=== PATIENT | male | born 1960 | race Caucasian/White ===

== ENCOUNTER 2023-01-11 20:09 | Inpatient (IN) | payer OTHER, SELFPAY ==
--- NOTE | ~2023-01-11 | XR_ITS ---
EXAMINATION: XR RIBS, LEFT CLINICAL INFORMATION: Rib pain COMPARISON: None available. TECHNIQUE: 3 views of the left ribs and one view of the chest were obtained. FINDINGS: The cardiac and mediastinal contours are stable. The lungs are clear. No pleural effusion or pneumothorax. There are left posterior sixth through ninth old or healing rib fractures. There is question of an acute fracture of the anterior eighth rib. Question 6 x 16 mm left renal stone. XR/XR ribs LT min 3V w CXR1V IMPRESSION: No evidence for acute disease in the chest. Old or healing left posterior sixth through ninth rib fractures. Question more recent or acute left anterior eighth rib fracture and left renal stone.
[2023-01-11] MEDS: traZODone HCL 50 MG TABLET PO (21:16)
[2023-01-11] MEDS: hydrOXYzine HCL 25 MG TABLET PO (21:17)
[2023-01-11 21:24] VITALS: BMI 26.2
[2023-01-11] MEDS: LORazepam 0.5 MG TABLET PO (21:35)
[2023-01-11 21:42] VITALS: BP 158/78; PULSE 68; RESP 18; TEMP 37; O2SAT 96
--- NOTE | 2023-01-12 | PC.ADMIT ---
Admitted a 62 yrs. old male patient per stretcher accompanied by ambulance staff w/ presenting problem of anxiety. Pt. has hx of anxiety and Bipolar D/O. Pt. is alert and oriented x4, very anxious and nervous but denies SI/HI/AVH. Pt. reports that he is not taken his medications. Pt has hx of high cholesterol and pulmonary embolism. Pt. signed the CV. Skin assessment done w. a small bruise to R. AC and small red areas on L arm. Pt. denies pain and SOB, no edema noted. Pt oriented to the unit.staff and room mate. Dr. Nguyen Olivera in w/ orders and hospitalist informed for hospitalist consult. Pt is given PRN Atarax, Trazodone and Ativan 0.5 mg. w/ good effect. Pt. is cooperative w/ the admission prcess w/ some encouragement. Pt signed some of the Release of information. Pt is independent in ambulation and ADLS.
[2023-01-12] MEDS: hydrOXYzine HCL 25 MG TABLET PO ×3 (05:05→17:37)
[2023-01-12] MEDS: Acetaminophen 325 MG TABLET 650 MG PO (08:00)
[2023-01-12 08:20] VITALS: BP 156/88; PULSE 85; RESP 20; TEMP 35.9; O2SAT 96
[2023-01-12 08:52] LABS: Estimated Average Glucose 103 mg/dL; Hemoglobin A1c % 5.2 %
[2023-01-12] MEDS: LORazepam 0.5 MG TABLET PO ×3 (08:57→20:21)
[2023-01-12 09:19] LABS: Alanine Aminotransferase 25 U/L (0-40); Albumin Level 4.3 g/dL (3.5-5.0); Alkaline Phosphatase 90 U/L (39-117); Anion Gap 17 (12-20); Aspartate Amino Transferase 17 U/L (5-37); Bilirubin Total 1.3 mg/dL (0.0-1.0); Blood Urea Nitrogen 19 mg/dL (9-16); Carbon Dioxide 16 mmol/L (22-29); Chloride 111 mmol/L (96-108); Cholesterol 177 mg/dL; Creatinine Clr Calc Pharmacy 56.9; Estimated Glomerular Filt Rate 46; Glucose Fasting 158 mg/dL (60-99); HDL Cholesterol 53 mg/dL; LDL Cholesterol Calculated 104 mg/dl; Potassium 4.1 mmol/L (3.3-5.1); Sodium 140 mmol/L (135-145); Total Protein 6.5 g/dL (6.5-8.0); Triglycerides 101 mg/dL
[2023-01-12 09:34] LABS: Folate 14.7 ng/mL (> or = 4.0); Free T4 (Free Thyroxine) 1.33 ng/dL (0.71-1.85); Thyroid Stimulating Hormone 1.03 uIU/mL (0.32-4.0); Vitamin B12 501 pg/mL (200-900)
[2023-01-12] MEDS: OLANZapine ODT 10 MG TAB.RAPDIS TRANSLINGU ×2 (14:38→18:07)
--- NOTE | 2023-01-12 14:42 | HO.PSYADMNOT ---
HPI Date of Service: 01/12/23 Chief Complaint: F32.9, F31.9 Sources of Information: patient interviewed, chart reviewed and crisis/core team assessment reviewed HPI Subjective Notes: [place] Warning and Conditional Voluntary Narrative: The patient is a 62-year-old male, , with no biological children, living with his is still adult stepdaughter and child, disable with good social support. According to the crisis assessment, the patient carries a diagnosis of bipolar disorder and he was referred to the emergency room due to exacerbation of anxiety. Apparently, he had being noncompliant with medications for several months. On interview, the patient was very anxious and we had to stop the interview a couple of times. He he adamantly denies having a psychiatric disease besides anxiety and he stated that he was not feeling well with restlessness, racing thoughts, dysphoria, depressive symptoms and port attention. He denies active suicidal ideation and he is able to contract for safety. We will try to gather collateral information and contact her and get more information regarding him. Medical Evaluation Reviewed: Yes PMFSH Family History: Patient refused to elaborate Social History: , living with his and adult stepdaughter, good social support. Substance History: Unknown, he denies Trauma History: Denies Diagnostics Vital Signs (24Hr): Vital Signs - 24 hr 01/11/23 21:42 01/12/23 08:20 Temperature 98.6 F 96.6 F L Pulse Rate 68 85 Respiratory Rate 18 20 Blood Pressure 158/78 H 156/88 H Pulse Oximetry 96 96 Oxygen Delivery Method Room Air Room Air BMI result Body Mass Index 26.2 Labs 01/12/23 07:58 Labs: Laboratory Results - last 48 hr 01/12/23 01/12/23 07:58 07:58 Sodium 140 Potassium 4.1 Chloride 111 H Carbon Dioxide 16 L Anion Gap 17 BUN 19 H Creatinine 1.54 H Estim Creat Clear Calc 56.9 Estimated GFR 46 Fasting Glucose 158 H Estimat Average Glucose 103 Hemoglobin A1c % 5.2 Calcium 10.0 Total Bilirubin 1.3 H AST 17 ALT 25 Alkaline Phosphatase 90 Total Protein 6.5 Albumin 4.3 Triglycerides 101 Cholesterol 177 LDL Cholesterol, Calc 104 HDL Cholesterol 53 Vitamin B12 501 Folate 14.7 TSH 1.03 Free T4 1.33 Meds/Allergies Meds Home Medications Medication Instructions Recorded Confirmed Type apixaban 5 mg tablet (Eliquis) 5 mg PO BID@0900,1700 01/12/23 01/12/23 History atorvastatin 80 mg tablet 80 mg PO BEDTIME 01/12/23 01/12/23 History benztropine 1 mg tablet 1 mg PO BID 01/12/23 01/12/23 History clonidine HCl 0.1 mg tablet 0.1 mg PO TID 01/12/23 01/12/23 History gabapentin 400 mg capsule 400 mg PO TID 01/12/23 01/12/23 History hydroxyzine HCl 25 mg tablet 25 mg PO BID PRN Anxiety 01/12/23 01/12/23 History lisinopril 10 mg tablet 10 mg PO DAILY 01/12/23 01/12/23 History lorazepam 0.5 mg tablet 0.5 mg PO TID 01/12/23 01/12/23 History olanzapine 20 mg tablet 20 mg PO BEDTIME 01/12/23 01/12/23 History pantoprazole 40 mg tablet,delayed 40 mg PO DAILY 01/12/23 01/12/23 History release propranolol 20 mg tablet 20 mg PO BID 01/12/23 01/12/23 History venlafaxine 150 mg 150 mg PO QAM 01/12/23 01/12/23 History capsule,extended release 24 hr Allergies Allergies Allergy/AdvReac Type Severity Reaction Status Date / Time No Known Allergies Allergy Verified 01/12/23 10:41 Mental Status Exam Mental Status Exam Patient Appearance: Well Grooomed and Appropriate Patient Orientation: Person, Place and Situation Level of Consciousness: Awake Patient Behavior: Guarded, Restless and Anxious Mood Description: Withdrawn Affect Description: Labile Ability to Follow Directions: Good Speech Pattern: Clear Hallucinations: None Delusions: Paranoid Ideation Thought Process: Illogical, Distracted and Slowed Thinking Thought Content: positive for [place] Judgement: Poor Assessment & Plan Assessment & Plan (1) Bipolar affect, depressed: Status: Acute Code(s): F31.30 - Bipolar disorder, current episode depressed, mild or moderate severity, unspecified Plan The patient is a middle-aged male with a past history of bipolar disorder admitted for exacerbation of dysphoria, increased anxiety and suicidal thoughts in the context of noncompliance for several months. Plan 1. Gather collateral information. 2. We will try to get the med rec and restarted on medications. 3. We will restart gabapentin to target anxiety and restlessness. 4. We will stop Effexor since it could increase his anxiety. 5. We will add Zyprexa Zydis as p.r.n. with benzodiazepines.. 6. Reassessment with results . Patient educated on: diagnosis and medication risk/benefits Reason for continued inpatient stay Substantial Risk for: inability to function, rapid decompensation and med/psych decompensation Statement Statement: I have reviewed the history and physical and performed a pertinent examination on my patient. No changes have occurred unless specified. If the History and Physical was not performed prior to admission, the Hospitalist's service will be consulted for completing the admission physical. Time Spent With Patient Time: Total time managing care of this patient today __45__ minutes.
[2023-01-12 14:43] VITALS: BMI 26.2
--- NOTE | 2023-01-12 15:06 | P.CONHOSP_ITS ---
History of Present Illness Data of Consult Service Date: 01/12/23 Primary Care Provider: Unknown Physician HPI Reason for consult: Admission H&P Pt is a 62-year-old male with a PMH significant for?CAD, HLD, anxiety, hx of [place] three years ago, hx of CVA three years ago, hx of stomach ulcer, and bipolar disorder who is admitted to [facility] for increasing anxiety and depression and medication noncompliance. Medical consult for admission H&P. Patient states that he has no acute medical complaints at this time. Denies headache, vision changes. No fever, chills, nausea, vomiting, abdominal pain, diarrhea. Denies chest pain/pressure, palpitations. No shortness of breath. Patient seems mildly anxious at time of interview, and declines physical examination. Labs reviewed, significant for elevated BUN of 19 and creatinine of 1.54, baseline unknown. Review of Systems Review of Systems: Patient has no acute medical complaints at this time Yes all other systems are reviewed and are negative [facility] Social History Household Members: Spouse and Other Household Members Other:: Stepdaughter Housing: Apartment Do you presently have visiting nurse or other home services: Yes (Visiting Nurse.) Patient Tobacco Use Status: Never used Tobacco Smoked in Last 30 Days: No e-Cigarette/Vaping Use: Never Used Patient Interested in Nicotine Replacement: No Patient Given Instructions on How to Stop Smoking: No Second Hand Smoke Exposure: No Use of substances other than those prescribed or required for medical reasons: No Currently Displaying Signs/Symptoms of Drug Intoxication Withdrawal: No Any prior treatment program specific to substance use: No Have you been hit, kicked, punched, or otherwise hurt by someone within the past year? If so, by whom?: No Do you feel safe in your current relationship?: Yes Is there a partner from a previous relationship who is making you feel unsafe now?: No Are you made to feel afraid or neglected: No Advance Directives: No Advance Directives Information Provided: No Do you have thoughts of harming others: None Do you have a plan to hurt others: No Plan Recently lost weight without trying: No Eating poorly because of decreased appetite: Yes Nutrition Risks: No Nutritional Risk Poor oral hygiene: No service: No Sexual orientation: Straight/Heterosexual Meds Allergies Allergy/AdvReac Type Severity Reaction Status Date / Time No Known Allergies Allergy Verified 01/12/23 10:41 Active Medications: Current Medications Acetaminophen (Acetaminophen 325 Mg Tablet) 650 mg PO Q6H PRN PRN Reason: Headache/Pain Mild Scale (1-3) Last Admin: 01/12/23 08:00 Dose: 650 mg Al Hydroxide/Mg Hydroxide (Magnesium Hydrox/Alum Hydrox 30 Ml Oral.Susp) 30 ml PO Q6H PRN PRN Reason: Heartburn/Nausea Apixaban (Apixaban 5 Mg Tablet) 5 mg PO BID@0900,1700 [facility] Atorvastatin Calcium (Atorvastatin Calcium 80 Mg Tablet) 80 mg PO BEDTIME [facility] Clonidine HCl (Clonidine Hcl 0.1 Mg Tablet) 0.1 mg PO TID [facility]; Protocol Gabapentin (Gabapentin 400 Mg Capsule) 400 mg PO TID [facility] Hydroxyzine HCl (Hydroxyzine Hcl 25 Mg Tablet) 25 mg PO Q6H PRN PRN Reason: Anxiety Last Admin: 01/12/23 11:16 Dose: 25 mg Lisinopril (Lisinopril 10 Mg Tablet) 10 mg PO DAILY [facility]; Protocol Lorazepam (Lorazepam 0.5 Mg Tablet) 0.5 mg PO TID [facility] Magnesium Hydroxide (Milk Of Magnesia 30 Ml Oral.Susp) 30 ml PO DAILY PRN PRN Reason: Constipation Nicotine Polacrilex (Nicotine Polacrilex 2 Mg Gum) 4 mg BUCCAL Q2H PRN PRN Reason: Nicotine Cravings Olanzapine (Olanzapine 10 Mg Tablet) 20 mg PO BEDTIME [facility] Olanzapine (Olanzapine Odt 10 Mg Tab.Rapdis) 10 mg TRANSLINGU BID PRN PRN Reason: Psychosis Last Admin: 01/12/23 14:38 Dose: 10 mg Omeprazole (Omeprazole 20 Mg Capsule.Dr) 20 mg PO DAILY@0630 [facility] Propranolol HCl (Propranolol Hcl 20 Mg Tablet) 20 mg PO BID [facility]; Protocol Trazodone HCl (Trazodone Hcl 50 Mg Tablet) 50 mg PO BEDTIME MRX1 PRN PRN Reason: Insomnia Last Admin: 01/11/23 21:16 Dose: 50 mg Home Medications Medication Instructions Recorded Confirmed Last Taken Type apixaban 5 mg tablet (Eliquis) 5 mg PO BID@0900,1700 01/12/23 01/12/23 Unknown History atorvastatin 80 mg tablet 80 mg PO BEDTIME 01/12/23 01/12/23 Unknown History benztropine 1 mg tablet 1 mg PO BID 01/12/23 01/12/23 Unknown History clonidine HCl 0.1 mg tablet 0.1 mg PO TID 01/12/23 01/12/23 Unknown History gabapentin 400 mg capsule 400 mg PO TID 01/12/23 01/12/23 Unknown History hydroxyzine HCl 25 mg tablet 25 mg PO BID PRN Anxiety 01/12/23 01/12/23 Unknown History lisinopril 10 mg tablet 10 mg PO DAILY 01/12/23 01/12/23 Unknown History lorazepam 0.5 mg tablet 0.5 mg PO TID 01/12/23 01/12/23 Unknown History olanzapine 20 mg tablet 20 mg PO BEDTIME 01/12/23 01/12/23 Unknown History pantoprazole 40 mg tablet,delayed 40 mg PO DAILY 01/12/23 01/12/23 Unknown History release propranolol 20 mg tablet 20 mg PO BID 01/12/23 01/12/23 Unknown History venlafaxine 150 mg 150 mg PO QAM 01/12/23 01/12/23 Unknown History capsule,extended release 24 hr Physical Exam Vital Signs and Narrative: Vital Signs: Last Vital Signs Temp 96.6 F L 01/12/23 08:20 Pulse 85 01/12/23 08:20 Resp 20 01/12/23 08:20 BP 156/88 H 01/12/23 08:20 Pulse Ox 96 01/12/23 08:20 O2 Del Method Room Air 01/12/23 08:20 BMI result Body Mass Index 26.2 General: AOx3, no acute distress Psych: Pt slightly anxious, cooperative, answering questions appropriately Patient declines physical examination Results Labs 01/12/23 07:58 Labs: Laboratory Results - last 24 hr 01/12/23 01/12/23 07:58 07:58 Anion Gap 17 Estim Creat Clear Calc 56.9 Estimated GFR 46 Fasting Glucose 158 H Estimat Average Glucose 103 Hemoglobin A1c % 5.2 Calcium 10.0 Total Bilirubin 1.3 H AST 17 ALT 25 Alkaline Phosphatase 90 Total Protein 6.5 Albumin 4.3 Triglycerides 101 Cholesterol 177 LDL Cholesterol, Calc 104 HDL Cholesterol 53 Vitamin B12 501 Folate 14.7 TSH 1.03 Free T4 1.33 Assessment and Plan (1) Routine history and physical examination of adult: Status: Acute Plan Pt is a 62-year-old male with a PMH significant for?CAD, HLD, anxiety, hx of [place] three years ago, hx of CVA three years ago, hx of stomach ulcer, and bipolar disorder who is admitted to [facility] for increasing anxiety and depression and medication noncompliance. Medical consult for admission H&P. Patient states that he has no acute medical complaints at this Mood disorder Plan as per Psychiatry Elevated creatinine Patient's creatinine 1.54, slightly above creatinine of 1.37 from labs at [facility] on 01/11/2023 Baseline on known Patient likely mildly dehydrated from decreased p.o. intake Encourage p.o. intake of fluids CAD Continue statin History of CVA Continue statin, Eliquis GERD Continue pantoprazole HTN Continue lisinopril Thank you for allowing us to participate in the care of this patient. Signing off at this time. Please let us know if there are any acute complaints or questions. Time Spent With Patient Time: Total time managing care of this patient today ____ minutes.
[2023-01-12 15:19] VITALS: BP 152/81
[2023-01-12] MEDS: cloNIDine HCL 0.1 MG TABLET PO ×2 (15:25→20:21)
[2023-01-12] MEDS: Gabapentin 400 MG CAPSULE PO ×2 (15:25→20:21)
--- NOTE | 2023-01-12 16:16 | PC.NURSE ---
Rob declined breakfast and ate less than 25% of lunch. Dr. Wanrer notified and dietary consult placed. BPs 150s-70s/80s; Rob asymptomatic and Dr. Warner notified.
[2023-01-12] MEDS: Apixaban 5 MG TABLET PO (17:37)
[2023-01-12 18:00] VITALS: BP 141/72; PULSE 82; TEMP 36.8
[2023-01-12] MEDS: Atorvastatin Calcium 80 MG TABLET PO (20:20)
[2023-01-12] MEDS: OLANZapine 10 MG TABLET 20 MG PO (20:21)
[2023-01-12] MEDS: Propranolol HCL 20 MG TABLET PO (20:21)
[2023-01-13 06:00] VITALS: BP 146/70; PULSE 66; RESP 18; TEMP 36.9; O2SAT 96
[2023-01-13] MEDS: Gabapentin 400 MG CAPSULE PO ×3 (08:17→21:38)
[2023-01-13] MEDS: lisinopriL 10 MG TABLET PO (08:17)
[2023-01-13] MEDS: LORazepam 0.5 MG TABLET PO (08:18)
[2023-01-13] MEDS: Apixaban 5 MG TABLET PO ×2 (08:18→15:47)
[2023-01-13] MEDS: cloNIDine HCL 0.1 MG TABLET PO ×3 (08:18→21:39)
[2023-01-13] MEDS: Propranolol HCL 20 MG TABLET PO (08:18)
[2023-01-13] MEDS: Omeprazole 20 MG CAPSULE.DR PO (08:19)
--- NOTE | 2023-01-13 14:02 | P.PNPSI_ITS ---
Subjective Subjective Date of Service: 01/13/23 Reason For Visit: F32.9, F31.9 Subjective Notes: Conditional Voluntary Interim History: The nursing staff the reported the patient had been extremely anxious pacing. She also reported poor p.o. intake. Even though he was compliant with treatment he slept well last night. The social science professor reported that was trying to be contact and so far we could not get any information. On interview the patient reports anxiety explain him that we restarted his and medications and he will take a while to get back. So far no evidence of psychosis but very restless, extremely anxious, he requested increased of Ativan . We discussed risks, benefits, side-effects and alternatives and he agreed to change Ativan to Klonopin. Mental Status Exam Mental Status Exam Patient Appearance: Well Grooomed Patient Orientation: Person and Situation Level of Consciousness: Awake, Appropriate and Restless Patient Behavior: Passive and Restless Mood Description: Withdrawn Affect Description: Constricted Patient Cognition Impaired: No Ability to Follow Directions: Good Speech Pattern: Clear Hallucinations: None Delusions: Paranoid Ideation Thought Process: Distracted and Linear Thought Content: positive for [place] and positive for Circumstantial Judgement: Fair Diagnostics Vital Signs (24Hr): Vital Signs - 24 hr 01/12/23 15:19 01/12/23 18:00 01/13/23 06:00 Temperature 98.3 F 98.5 F Pulse Rate 82 66 Respiratory Rate 18 Blood Pressure 152/81 H 141/72 H 146/70 H Pulse Oximetry 96 Oxygen Delivery Method Room Air BMI result Body Mass Index 26.2 Labs 01/12/23 07:58 Labs: Laboratory Results - last 48 hr 01/12/23 01/12/23 07:58 07:58 Sodium 140 Potassium 4.1 Chloride 111 H Carbon Dioxide 16 L Anion Gap 17 BUN 19 H Creatinine 1.54 H Estim Creat Clear Calc 56.9 Estimated GFR 46 Fasting Glucose 158 H Estimat Average Glucose 103 Hemoglobin A1c % 5.2 Calcium 10.0 Total Bilirubin 1.3 H AST 17 ALT 25 Alkaline Phosphatase 90 Total Protein 6.5 Albumin 4.3 Triglycerides 101 Cholesterol 177 LDL Cholesterol, Calc 104 HDL Cholesterol 53 Vitamin B12 501 Folate 14.7 TSH 1.03 Free T4 1.33 Medications Medications Current Medications Acetaminophen (Acetaminophen 325 Mg Tablet) 650 mg PO Q6H PRN PRN Reason: Headache/Pain Mild Scale (1-3) Last Admin: 01/12/23 08:00 Dose: 650 mg Al Hydroxide/Mg Hydroxide (Magnesium Hydrox/Alum Hydrox 30 Ml Oral.Susp) 30 ml PO Q6H PRN PRN Reason: Heartburn/Nausea Apixaban (Apixaban 5 Mg Tablet) 5 mg PO BID@0900,1700 [facility] Last Admin: 01/13/23 08:18 Dose: 5 mg Atorvastatin Calcium (Atorvastatin Calcium 80 Mg Tablet) 80 mg PO BEDTIME [facility] Last Admin: 01/12/23 20:20 Dose: 80 mg Clonidine HCl (Clonidine Hcl 0.1 Mg Tablet) 0.1 mg PO TID [facility]; Protocol Last Admin: 01/13/23 08:18 Dose: 0.1 mg Gabapentin (Gabapentin 400 Mg Capsule) 400 mg PO TID [facility] Last Admin: 01/13/23 08:17 Dose: 400 mg Hydroxyzine HCl (Hydroxyzine Hcl 25 Mg Tablet) 25 mg PO Q6H PRN PRN Reason: Anxiety Last Admin: 01/12/23 17:37 Dose: 25 mg Lisinopril (Lisinopril 10 Mg Tablet) 10 mg PO DAILY [facility]; Protocol Last Admin: 01/13/23 08:17 Dose: 10 mg Lorazepam (Lorazepam 0.5 Mg Tablet) 0.5 mg PO TID [facility] Last Admin: 01/13/23 08:18 Dose: 0.5 mg Magnesium Hydroxide (Milk Of Magnesia 30 Ml Oral.Susp) 30 ml PO DAILY PRN PRN Reason: Constipation Nicotine Polacrilex (Nicotine Polacrilex 2 Mg Gum) 4 mg BUCCAL Q2H PRN PRN Reason: Nicotine Cravings Olanzapine (Olanzapine 10 Mg Tablet) 20 mg PO BEDTIME [facility] Last Admin: 01/12/23 20:21 Dose: 20 mg Olanzapine (Olanzapine Odt 10 Mg Tab.Rapdis) 10 mg TRANSLINGU BID PRN PRN Reason: Psychosis Last Admin: 01/12/23 18:07 Dose: 10 mg Omeprazole (Omeprazole 20 Mg Capsule.Dr) 20 mg PO DAILY@0630 [facility] Last Admin: 01/13/23 08:19 Dose: 20 mg Propranolol HCl (Propranolol Hcl 20 Mg Tablet) 20 mg PO BID [facility]; Protocol Last Admin: 01/13/23 08:18 Dose: 20 mg Trazodone HCl (Trazodone Hcl 50 Mg Tablet) 50 mg PO BEDTIME MRX1 PRN PRN Reason: Insomnia Last Admin: 01/11/23 21:16 Dose: 50 mg Allergies Allergies Allergy/AdvReac Type Severity Reaction Status Date / Time No Known Allergies Allergy Verified 01/12/23 10:41 Assessment & Plan Assessment & Plan (1) Routine history and physical examination of adult: Status: Acute Code(s): Z00.00 - Encounter for general adult medical examination without abnormal findings Plan Pt is a 62-year-old male with a PMH significant for?CAD, HLD, anxiety, hx of [place] three years ago, hx of CVA three years ago, hx of stomach ulcer, and bipolar disorder who is admitted to [facility] for increasing anxiety and depression and medication noncompliance. Medical consult for admission H&P. Patient states that he has no acute medical complaints at this Mood disorder Plan as per Psychiatry Elevated creatinine Patient's creatinine 1.54, slightly above creatinine of 1.37 from labs at [facility] on 01/11/2023 Baseline on known Patient likely mildly dehydrated from decreased p.o. intake Encourage p.o. intake of fluids CAD Continue statin History of CVA Continue statin, Eliquis GERD Continue pantoprazole HTN Continue lisinopril Thank you for allowing us to participate in the care of this patient. Signing off at this time. Please let us know if there are any acute complaints or questions. Plan 1. Gather collateral information, we will try to contact her his . 2. Continue Zyprexa clonidine and other medications. 3. Reassessment with results. 4. Increase gabapentin up to 600 mg p.o. t.i.d.. 6. Discontinue Ativan and start Klonopin 0.5 p.o. t.i.d. Reason for continued inpatient stay Substantial Risk for: inability to function, rapid decompensation and med/psych decompensation Time Spent With Patient Time: Total time managing care of this patient today __20__ minutes.
--- NOTE | 2023-01-13 14:36 | MHC.CLN ---
NUTRITION CONSULT FOR POOR INTAKE. DIET=REGULAR. ADDING ENSURE BID TO PROVIDE ADDITIONAL [address] KCALS, [address] TO FOLLOW FOR INTAKE.
[2023-01-13 15:40] VITALS: BP 125/82; PULSE 86
[2023-01-13] MEDS: clonazePAM 0.5 MG TABLET PO ×2 (15:47→21:38)
[2023-01-13 18:00] VITALS: BP 108/55; PULSE 56; RESP 20; TEMP 36.6; O2SAT 96
[2023-01-13] MEDS: Atorvastatin Calcium 80 MG TABLET PO (21:38)
[2023-01-13] MEDS: OLANZapine 10 MG TABLET 20 MG PO (21:38)
[2023-01-14] MEDS: Apixaban 5 MG TABLET PO ×2 (08:56→16:49)
[2023-01-14] MEDS: cloNIDine HCL 0.1 MG TABLET PO ×3 (08:56→20:20)
[2023-01-14] MEDS: clonazePAM 0.5 MG TABLET PO ×4 (08:57→20:20)
[2023-01-14] MEDS: lisinopriL 10 MG TABLET PO (08:57)
[2023-01-14] MEDS: Propranolol HCL 20 MG TABLET PO ×2 (08:57→20:20)
[2023-01-14] MEDS: Gabapentin 400 MG CAPSULE PO (08:58)
[2023-01-14 09:00] VITALS: BP 111/50; PULSE 61; RESP 16; TEMP 37; O2SAT 98
[2023-01-14] MEDS: Omeprazole 20 MG CAPSULE.DR PO (09:01)
--- NOTE | 2023-01-14 11:43 | P.PNPSI_ITS ---
Subjective Subjective Date of Service: 01/14/23 Reason For Visit: F32.9, F31.9 Subjective Notes: Conditional Voluntary Interim History: The nursing staff reported the patient took his medications he looks less anxious and he slept well last night. On interview the patient reported that he was feeling very anxious and requested extra Klonopin. He we discussed options and agreed increase gabapentin. Mental Status Exam Mental Status Exam Patient Appearance: Well Grooomed and Appropriate Patient Orientation: Person and Situation Level of Consciousness: Awake and Appropriate Patient Behavior: Passive Mood Description: Calm Affect Description: Withdrawn and Nervous Patient Cognition Impaired: No Ability to Follow Directions: Good Speech Pattern: Clear Hallucinations: None Delusions: Not Present Thought Process: Racing Judgement: Poor Diagnostics Vital Signs (24Hr): Vital Signs - 24 hr 01/13/23 15:40 01/13/23 18:00 01/14/23 09:00 Temperature 97.9 F 98.6 F Pulse Rate 86 56 61 Respiratory Rate 20 16 Blood Pressure 125/82 108/55 L 111/50 L Pulse Oximetry 96 98 Oxygen Delivery Method Room Air Room Air BMI result Body Mass Index 26.2 Labs 01/12/23 07:58 Medications Medications Current Medications Acetaminophen (Acetaminophen 325 Mg Tablet) 650 mg PO Q6H PRN PRN Reason: Headache/Pain Mild Scale (1-3) Last Admin: 01/12/23 08:00 Dose: 650 mg Al Hydroxide/Mg Hydroxide (Magnesium Hydrox/Alum Hydrox 30 Ml Oral.Susp) 30 ml PO Q6H PRN PRN Reason: Heartburn/Nausea Apixaban (Apixaban 5 Mg Tablet) 5 mg PO BID@0900,1700 [facility] Last Admin: 01/14/23 08:56 Dose: 5 mg Atorvastatin Calcium (Atorvastatin Calcium 80 Mg Tablet) 80 mg PO BEDTIME [facility] Last Admin: 01/13/23 21:38 Dose: 80 mg Clonazepam (Clonazepam 0.5 Mg Tablet) 0.5 mg PO TID [facility] Last Admin: 01/14/23 08:57 Dose: 0.5 mg Clonidine HCl (Clonidine Hcl 0.1 Mg Tablet) 0.1 mg PO TID [facility]; Protocol Last Admin: 01/14/23 08:56 Dose: 0.1 mg Gabapentin (Gabapentin 400 Mg Capsule) 400 mg PO TID [facility] Last Admin: 01/14/23 08:58 Dose: 400 mg Hydroxyzine HCl (Hydroxyzine Hcl 25 Mg Tablet) 25 mg PO Q6H PRN PRN Reason: Anxiety Last Admin: 01/12/23 17:37 Dose: 25 mg Lisinopril (Lisinopril 10 Mg Tablet) 10 mg PO DAILY [facility]; Protocol Last Admin: 01/14/23 08:57 Dose: 10 mg Magnesium Hydroxide (Milk Of Magnesia 30 Ml Oral.Susp) 30 ml PO DAILY PRN PRN Reason: Constipation Nicotine Polacrilex (Nicotine Polacrilex 2 Mg Gum) 4 mg BUCCAL Q2H PRN PRN Reason: Nicotine Cravings Olanzapine (Olanzapine 10 Mg Tablet) 20 mg PO BEDTIME [facility] Last Admin: 01/13/23 21:38 Dose: 20 mg Olanzapine (Olanzapine Odt 10 Mg Tab.Rapdis) 10 mg TRANSLINGU BID PRN PRN Reason: Psychosis Last Admin: 01/12/23 18:07 Dose: 10 mg Omeprazole (Omeprazole 20 Mg Capsule.Dr) 20 mg PO DAILY@0630 [facility] Last Admin: 01/14/23 09:01 Dose: 20 mg Propranolol HCl (Propranolol Hcl 20 Mg Tablet) 20 mg PO BID [facility]; Protocol Last Admin: 01/14/23 08:57 Dose: 20 mg Trazodone HCl (Trazodone Hcl 50 Mg Tablet) 50 mg PO BEDTIME MRX1 PRN PRN Reason: Insomnia Last Admin: 01/11/23 21:16 Dose: 50 mg Allergies Allergies Allergy/AdvReac Type Severity Reaction Status Date / Time No Known Allergies Allergy Verified 01/12/23 10:41 Assessment & Plan Assessment & Plan (1) Routine history and physical examination of adult: Status: Acute Code(s): Z00.00 - Encounter for general adult medical examination without abnormal findings Plan Pt is a 62-year-old male with a PMH significant for?CAD, HLD, anxiety, hx of [place] three years ago, hx of CVA three years ago, hx of stomach ulcer, and bipolar d isorder who is admitted to [facility] for increasing anxiety and depression and medication noncompliance. Medical consult for admission H&P. Patient states that he has no acute medical complaints at this Mood disorder Plan as per Psychiatry Elevated creatinine Patient's creatinine 1.54, slightly above creatinine of 1.37 from labs at [facility] on 01/11/2023 Baseline on known Patient likely mildly dehydrated from decreased p.o. intake Encourage p.o. intake of fluids CAD Continue statin History of CVA Continue statin, Eliquis GERD Continue pantoprazole HTN Continue lisinopril Thank you for allowing us to participate in the care of this patient. Signing off at this time. Please let us know if there are any acute complaints or questions. Plan 1. Gather collateral information, we will try to contact her his . 2. Continue Zyprexa clonidine and other medications. 3. Reassessment with results. 4. Increase gabapentin up to 600 mg p.o. t.i.d.. 6. Discontinue Ativan and start Klonopin 0.5 p.o. t.i.d. Reason for continued inpatient stay Substantial Risk for: inability to function, rapid decompensation and med/psych decompensation Time Spent With Patient Time: Total time managing care of this patient today __20__ minutes.
[2023-01-14 14:17] VITALS: BP 129/73; PULSE 55
[2023-01-14] MEDS: Gabapentin 300 MG CAPSULE 600 MG PO ×2 (14:26→20:19)
[2023-01-14 18:00] VITALS: BP 115/57; PULSE 81; RESP 18; TEMP 37; O2SAT 96
[2023-01-14] MEDS: Atorvastatin Calcium 80 MG TABLET PO (20:19)
[2023-01-14] MEDS: OLANZapine 10 MG TABLET 20 MG PO (20:19)
[2023-01-15] MEDS: hydrOXYzine HCL 25 MG TABLET PO (01:09)
[2023-01-15] MEDS: OLANZapine ODT 10 MG TAB.RAPDIS TRANSLINGU (01:09)
[2023-01-15] MEDS: traZODone HCL 50 MG TABLET PO ×2 (01:09→21:18)
[2023-01-15] MEDS: Acetaminophen 325 MG TABLET 650 MG PO ×2 (03:56→12:38)
[2023-01-15] MEDS: Omeprazole 20 MG CAPSULE.DR PO (06:25)
[2023-01-15 08:22] VITALS: BP 132/65; PULSE 73; RESP 20; TEMP 36.6; O2SAT 97
[2023-01-15] MEDS: Gabapentin 300 MG CAPSULE 600 MG PO ×3 (08:25→20:56)
[2023-01-15] MEDS: clonazePAM 0.5 MG TABLET PO ×3 (08:25→20:57)
[2023-01-15] MEDS: Propranolol HCL 20 MG TABLET PO ×2 (08:25→21:02)
[2023-01-15] MEDS: cloNIDine HCL 0.1 MG TABLET PO ×3 (08:25→20:58)
[2023-01-15] MEDS: lisinopriL 10 MG TABLET PO (08:25)
[2023-01-15] MEDS: Apixaban 5 MG TABLET PO ×2 (08:25→16:27)
--- NOTE | 2023-01-15 09:34 | P.PNPSI_ITS ---
Subjective Subjective Date of Service: 01/15/23 Reason For Visit: F32.9, F31.9 Subjective Notes: Conditional Voluntary Interim History: The nursing staff reported the patient has been very anxious asking for benzodiazepines. He receive p.r.n. Zyprexa at 01:00 o'clock and he has been restless. He slept 4 hours. On interview the patient reports that he is feeling anxious and his withdrawing of benzodiazepines even though that he has not been taking that for several weeks. We discussed options and he agreed to increase with stabilizers. Mental Status Exam Mental Status Exam Patient Appearance: Appropriate Patient Orientation: Person and Situation Level of Consciousness: Awake and Restless Patient Behavior: Talkative, Passive and Anxious Mood Description: Anxious Affect Description: Constricted Patient Cognition Impaired: Yes Ability to Follow Directions: Good Speech Pattern: Clear Hallucinations: None Delusions: Not Present Thought Process: Racing and Distracted Thought Content: positive for [place] Judgement: Poor Diagnostics Vital Signs (24Hr): Vital Signs - 24 hr 01/14/23 14:17 01/14/23 18:00 01/15/23 08:22 Temperature 98.6 F 97.9 F Pulse Rate 55 81 73 Respiratory Rate 18 20 Blood Pressure 129/73 115/57 L 132/65 Pulse Oximetry 96 97 Oxygen Delivery Method Room Air Room Air BMI result Body Mass Index 26.2 Labs 01/12/23 07:58 Medications Medications Current Medications Acetaminophen (Acetaminophen 325 Mg Tablet) 650 mg PO Q6H PRN PRN Reason: Headache/Pain Mild Scale (1-3) Last Admin: 01/15/23 03:56 Dose: 650 mg Al Hydroxide/Mg Hydroxide (Magnesium Hydrox/Alum Hydrox 30 Ml Oral.Susp) 30 ml PO Q6H PRN PRN Reason: Heartburn/Nausea Apixaban (Apixaban 5 Mg Tablet) 5 mg PO BID@0900,1700 [facility] Last Admin: 01/15/23 08:25 Dose: 5 mg Atorvastatin Calcium (Atorvastatin Calcium 80 Mg Tablet) 80 mg PO BEDTIME [facility] Last Admin: 01/14/23 20:19 Dose: 80 mg Clonazepam (Clonazepam 0.5 Mg Tablet) 0.5 mg PO TID [facility] Last Admin: 01/15/23 08:25 Dose: 0.5 mg Clonidine HCl (Clonidine Hcl 0.1 Mg Tablet) 0.1 mg PO TID [facility]; Protocol Last Admin: 01/15/23 08:25 Dose: 0.1 mg Gabapentin (Gabapentin 300 Mg Capsule) 600 mg PO TID [facility] Last Admin: 01/15/23 08:25 Dose: 600 mg Hydroxyzine HCl (Hydroxyzine Hcl 25 Mg Tablet) 25 mg PO Q6H PRN PRN Reason: Anxiety Last Admin: 01/15/23 01:09 Dose: 25 mg Lisinopril (Lisinopril 10 Mg Tablet) 10 mg PO DAILY [facility]; Protocol Last Admin: 01/15/23 08:25 Dose: 10 mg Magnesium Hydroxide (Milk Of Magnesia 30 Ml Oral.Susp) 30 ml PO DAILY PRN PRN Reason: Constipation Nicotine Polacrilex (Nicotine Polacrilex 2 Mg Gum) 4 mg BUCCAL Q2H PRN PRN Reason: Nicotine Cravings Olanzapine (Olanzapine 10 Mg Tablet) 20 mg PO BEDTIME [facility] Last Admin: 01/14/23 20:19 Dose: 20 mg Olanzapine (Olanzapine Odt 10 Mg Tab.Rapdis) 10 mg TRANSLINGU BID PRN PRN Reason: Psychosis Last Admin: 01/15/23 01:09 Dose: 10 mg Omeprazole (Omeprazole 20 Mg Capsule.Dr) 20 mg PO DAILY@0630 [facility] Last Admin: 01/15/23 06:25 Dose: 20 mg Propranolol HCl (Propranolol Hcl 20 Mg Tablet) 20 mg PO BID [facility]; Protocol Last Admin: 01/15/23 08:25 Dose: 20 mg Trazodone HCl (Trazodone Hcl 50 Mg Tablet) 50 mg PO BEDTIME MRX1 PRN PRN Reason: Insomnia Last Admin: 01/15/23 01:09 Dose: 50 mg Allergies Allergies Allergy/AdvReac Type Severity Reaction Status Date / Time No Known Allergies Allergy Verified 01/12/23 10:41 Assessment & Plan Assessment & Plan (1) Routine history and physical examination of adult: Status: Acute Code(s): Z00.00 - Encounter for general adult medical examination without abnormal findings Plan Pt is a 62-year-old male with a PMH significant for?CAD, HLD, anxiety, hx of [place] three years ago, hx of CVA three years ago, hx of stomach ulcer, and bipolar disorder who is admitted to [facility] for increasing anxiety and depression and medication noncompliance. Medical consult for admission H&P. Patient states that he has no acute medical complaints at this Mood disorder Plan as per Psychiatry Elevated creatinine Patient's creatinine 1.54, slightly above creatinine of 1.37 from labs at [facility] on 01/11/2023 Baseline on known Patient likely mildly dehydrated from decreased p.o. intake Encourage p.o. intake of fluids CAD Continue statin History of CVA Continue statin, Eliquis GERD Continue pantoprazole HTN Continue lisinopril Thank you for allowing us to participate in the care of this patient. Signing off at this time. Please let us know if there are any acute complaints or questions. Plan 1. Gather collateral information, we will try to contact her his . 2. Continue Zyprexa clonidine and other medications. 3. Reassessment with results. 4. Increase gabapentin up to 600 mg p.o. t.i.d.. 6. Discontinue Ativan and start Klonopin 0.5 p.o. t.i.d. 7. We will increased clonidine since his pulses over 80 on 01/15 Reason for continued inpatient stay Substantial Risk for: inability to function, rapid decompensation and med/psych decompensation Time Spent With Patient Time: Total time managing care of this patient today __20__ minutes.
[2023-01-15 15:00] VITALS: BP 127/82; PULSE 96
[2023-01-15 18:00] VITALS: BP 127/82; PULSE 73; RESP 96; TEMP 36.6; O2SAT 98
[2023-01-15] MEDS: OLANZapine 10 MG TABLET 20 MG PO (20:55)
[2023-01-15] MEDS: Atorvastatin Calcium 80 MG TABLET PO (21:03)
[2023-01-16 08:00] VITALS: BP 118/67; PULSE 77; RESP 18; TEMP 36.3; O2SAT 99
[2023-01-16] MEDS: cloNIDine HCL 0.1 MG TABLET PO ×3 (08:50→20:15)
[2023-01-16] MEDS: Apixaban 5 MG TABLET PO ×2 (08:50→17:48)
[2023-01-16] MEDS: Gabapentin 300 MG CAPSULE 600 MG PO (08:50)
[2023-01-16] MEDS: Propranolol HCL 20 MG TABLET PO ×2 (08:50→20:16)
[2023-01-16] MEDS: lisinopriL 10 MG TABLET PO (08:50)
[2023-01-16] MEDS: clonazePAM 0.5 MG TABLET PO ×3 (08:50→20:15)
[2023-01-16] MEDS: hydrOXYzine HCL 25 MG TABLET PO (11:15)
--- NOTE | 2023-01-16 13:07 | MHC.CLN ---
F/U PATIENT EATING ICE CREAM IN ROOM AT TIME OF VISIT. ATE PIZZA AT LUNCH. DISCUSSED ENSURE SUPPLEMENT. PATIENT WOULD LIKE TO CONTINUE. PO INTAKE VARIABLE.
[2023-01-16 14:30] VITALS: BP 167/90; PULSE 93; RESP 18; TEMP 36.2; O2SAT 97
[2023-01-16] MEDS: Gabapentin 400 MG CAPSULE 800 MG PO ×2 (15:11→20:15)
--- NOTE | 2023-01-16 16:25 | P.PNPSI_ITS ---
Subjective Subjective Date of Service: 01/16/23 Reason For Visit: F32.9, F31.9 Subjective Notes: Conditional Voluntary Interim History: The nursing staff reported the patient had been fully compliant with treatment, he has shown drug-seeking behavior. On interview the patient denies over-sedation with increase of Neurontin, he reports anxiety and requested more Klonopin. We discussed options and angry increase in her gabapentin up to 100 mg p.o. t.i.d.. The social service manager reported that tried to contact his but so far we have been unsuccessful in get collateral information. Mental Status Exam Mental Status Exam Patient Appearance: Well Grooomed and Appropriate Patient Orientation: Person and Situation Level of Consciousness: Awake and Appropriate Patient Behavior: Guarded and Passive Mood Description: Withdrawn Affect Description: Constricted Patient Cognition Impaired: Yes Ability to Follow Directions: Good Speech Pattern: Clear Hallucinations: None Delusions: Not Present Thought Process: Distracted and Rumination Thought Content: positive for [place], positive for [place] of Content and positive for Thought Blocking Judgement: Fair Diagnostics Vital Signs (24Hr): Vital Signs - 24 hr 01/15/23 18:00 01/16/23 08:00 Temperature 97.9 F 97.3 F Pulse Rate 73 77 Respiratory Rate 96 H 18 Blood Pressure 127/82 118/67 Pulse Oximetry 98 99 Oxygen Delivery Method Room Air Room Air BMI result Body Mass Index 26.2 Labs 01/12/23 07:58 Medications Medications Current Medications Acetaminophen (Acetaminophen 325 Mg Tablet) 650 mg PO Q6H PRN PRN Reason: Headache/Pain Mild Scale (1-3) Last Admin: 01/15/23 12:38 Dose: 650 mg Al Hydroxide/Mg Hydroxide (Magnesium Hydrox/Alum Hydrox 30 Ml Oral.Susp) 30 ml PO Q6H PRN PRN Reason: Heartburn/Nausea Apixaban (Apixaban 5 Mg Tablet) 5 mg PO BID@0900,1700 [facility] Last Admin: 01/16/23 08:50 Dose: 5 mg Atorvastatin Calcium (Atorvastatin Calcium 80 Mg Tablet) 80 mg PO BEDTIME [facility] Last Admin: 01/15/23 21:03 Dose: 80 mg Clonazepam (Clonazepam 0.5 Mg Tablet) 0.5 mg PO TID [facility] Last Admin: 01/16/23 15:11 Dose: 0.5 mg Clonidine HCl (Clonidine Hcl 0.1 Mg Tablet) 0.1 mg PO TID [facility]; Protocol Last Admin: 01/16/23 15:12 Dose: 0.1 mg Gabapentin (Gabapentin 400 Mg Capsule) 800 mg PO TID [facility] Last Admin: 01/16/23 15:11 Dose: 800 mg Hydroxyzine HCl (Hydroxyzine Hcl 25 Mg Tablet) 25 mg PO Q6H PRN PRN Reason: Anxiety Last Admin: 01/16/23 11:15 Dose: 25 mg Lisinopril (Lisinopril 10 Mg Tablet) 10 mg PO DAILY [facility]; Protocol Last Admin: 01/16/23 08:50 Dose: 10 mg Magnesium Hydroxide (Milk Of Magnesia 30 Ml Oral.Susp) 30 ml PO DAILY PRN PRN Reason: Constipation Nicotine Polacrilex (Nicotine Polacrilex 2 Mg Gum) 4 mg BUCCAL Q2H PRN PRN Reason: Nicotine Cravings Olanzapine (Olanzapine 10 Mg Tablet) 20 mg PO BEDTIME [facility] Last Admin: 01/15/23 20:55 Dose: 20 mg Olanzapine (Olanzapine Odt 10 Mg Tab.Rapdis) 10 mg TRANSLINGU BID PRN PRN Reason: Psychosis Last Admin: 01/15/23 01:09 Dose: 10 mg Omeprazole (Omeprazole 20 Mg Capsule.Dr) 20 mg PO DAILY@0630 [facility] Last Admin: 01/16/23 06:23 Dose: Not Given Propranolol HCl (Propranolol Hcl 20 Mg Tablet) 20 mg PO BID [facility]; Protocol Last Admin: 01/16/23 08:50 Dose: 20 mg Trazodone HCl (Trazodone Hcl 50 Mg Tablet) 50 mg PO BEDTIME MRX1 PRN PRN Reason: Insomnia Last Admin: 01/15/23 21:18 Dose: 50 mg Allergies Allergies Allergy/AdvReac Type Severity Reaction Status Date / Time No Known Allergies Allergy Verified 01/12/23 10:41 Assessment & Plan Assessment & Plan (1) Routine history and physical examination of adult: Status: Acute Code(s): Z00.00 - Encounter for general adult medical examination without abnormal findings Plan Pt is a 62-year-old male with a PMH significant for?CAD, HLD, anxiety, hx of [place] three years ago, hx of CVA three years ago, hx of stomach ulcer, and bipolar disorder who is admitted to [facility] for increasing anxiety and depression and medication noncompliance. Medical consult for admission H&P. Patient states that he has no acute medical complaints at this Mood disorder Plan as per Psychiatry Elevated creatinine Patient's creatinine 1.54, slightly above creatinine of 1.37 from labs at [facility] on 01/11/2023 Baseline on known Patient likely mildly dehydrated from decreased p.o. intake Encourage p.o. intake of fluids CAD Continue statin History of CVA Continue statin, Eliquis GERD Continue pantoprazole HTN Continue lisinopril Thank you for allowing us to participate in the care of this patient. Signing off at this time. Please let us know if there are any acute complaints or questions. Plan 1. Gather collateral information, we will try to contact her his . 2. Continue Zyprexa clonidine and other medications. 3. Reassessment with results. 4. Increase gabapentin up to 600 mg p.o. t.i.d.. It was increased up to 100 mg p.o. t.i.d. on January 16 6. Discontinue Ativan and start Klonopin 0.5 p.o. t.i.d. 7. We will increased clonidine since his pulses over 80 on 01/15 Reason for continued inpatient stay Substantial Risk for: inability to function, rapid decompensation and med/psych decompensation Time Spent With Patient Time: Total time managing care of this patient today ____ minutes.
[2023-01-16 19:45] VITALS: BP 128/60; PULSE 72; RESP 18; TEMP 36.5; O2SAT 96
[2023-01-16] MEDS: traZODone HCL 50 MG TABLET PO (20:15)
[2023-01-16] MEDS: OLANZapine 10 MG TABLET 20 MG PO (20:15)
[2023-01-16] MEDS: Atorvastatin Calcium 80 MG TABLET PO (20:15)
[2023-01-16] MEDS: OLANZapine ODT 10 MG TAB.RAPDIS TRANSLINGU (23:12)
[2023-01-17] MEDS: traZODone HCL 50 MG TABLET PO (00:20)
[2023-01-17] MEDS: Acetaminophen 325 MG TABLET 650 MG PO (00:20)
[2023-01-17] MEDS: hydrOXYzine HCL 25 MG TABLET PO ×2 (00:20→18:44)
[2023-01-17 07:30] VITALS: BP 150/68; PULSE 89; RESP 18; TEMP 36.3; O2SAT 97
[2023-01-17] MEDS: Apixaban 5 MG TABLET PO ×2 (08:25→16:38)
[2023-01-17] MEDS: Propranolol HCL 20 MG TABLET PO ×2 (08:25→20:27)
[2023-01-17] MEDS: Gabapentin 400 MG CAPSULE 800 MG PO ×3 (08:25→20:26)
[2023-01-17] MEDS: clonazePAM 0.5 MG TABLET PO ×3 (08:25→20:27)
[2023-01-17] MEDS: Omeprazole 20 MG CAPSULE.DR PO (08:26)
[2023-01-17] MEDS: cloNIDine HCL 0.1 MG TABLET PO ×3 (08:26→20:27)
[2023-01-17] MEDS: lisinopriL 10 MG TABLET PO (08:26)
--- NOTE | 2023-01-17 11:10 | P.PNPSI_ITS ---
Subjective Subjective Date of Service: 01/17/23 Reason For Visit: F32.9, F31.9 Subjective Notes: Conditional Voluntary Interim History: Pt reports feeling very anxious, restless, needing to pace. Pt reports poor sleep. He denies SI/HI. No psychosis. Pt appears to have akathisia. Family meeting held. Chart review, it appears restlessness worsen with olanzapine. At this point, it appears he has chronic akathisia, unclear if will improved with removal of medications that may worsen it. Review of Systems Review of Systems Patient has no acute medical complaints at this time Yes all other systems are reviewed and are negative Mental Status Exam Mental Status Exam Patient Appearance: Well Grooomed and Appropriate Patient Orientation: Person and Situation Level of Consciousness: Awake and Appropriate Patient Behavior: Guarded and Passive Mood Description: Withdrawn Affect Description: Constricted Patient Cognition Impaired: Yes Ability to Follow Directions: Good Speech Pattern: Clear Diagnostics Vital Signs (24Hr): Vital Signs - 24 hr 01/16/23 14:30 01/16/23 19:45 01/17/23 07:30 Temperature 97.1 F 97.7 F 97.3 F Pulse Rate 93 72 89 Respiratory Rate 18 18 18 Blood Pressure 167/90 H 128/60 150/68 H Pulse Oximetry 97 96 97 Oxygen Delivery Method Room Air Room Air Room Air BMI result Body Mass Index 26.2 Labs 01/12/23 07:58 Medications Medications Current Medications Acetaminophen (Acetaminophen 325 Mg Tablet) 650 mg PO Q6H PRN PRN Reason: Headache/Pain Mild Scale (1-3) Last Admin: 01/17/23 00:20 Dose: 650 mg Al Hydroxide/Mg Hydroxide (Magnesium Hydrox/Alum Hydrox 30 Ml Oral.Susp) 30 ml PO Q6H PRN PRN Reason: Heartburn/Nausea Apixaban (Apixaban 5 Mg Tablet) 5 mg PO BID@0900,1700 [facility] Last Admin: 01/17/23 08:25 Dose: 5 mg Atorvastatin Calcium (Atorvastatin Calcium 80 Mg Tablet) 80 mg PO BEDTIME [facility] Last Admin: 01/16/23 20:15 Dose: 80 mg Clonazepam (Clonazepam 0.5 Mg Tablet) 0.5 mg PO TID [facility] Last Admin: 01/17/23 08:25 Dose: 0.5 mg Clonidine HCl (Clonidine Hcl 0.1 Mg Tablet) 0.1 mg PO TID [facility]; Protocol Last Admin: 01/17/23 08:26 Dose: 0.1 mg Gabapentin (Gabapentin 400 Mg Capsule) 800 mg PO TID [facility] Last Admin: 01/17/23 08:25 Dose: 800 mg Hydroxyzine HCl (Hydroxyzine Hcl 25 Mg Tablet) 25 mg PO Q6H PRN PRN Reason: Anxiety Last Admin: 01/17/23 00:20 Dose: 25 mg Lisinopril (Lisinopril 10 Mg Tablet) 10 mg PO DAILY [facility]; Protocol Last Admin: 01/17/23 08:26 Dose: 10 mg Magnesium Hydroxide (Milk Of Magnesia 30 Ml Oral.Susp) 30 ml PO DAILY PRN PRN Reason: Constipation Nicotine Polacrilex (Nicotine Polacrilex 2 Mg Gum) 4 mg BUCCAL Q2H PRN PRN Reason: Nicotine Cravings Omeprazole (Omeprazole 20 Mg Capsule.Dr) 20 mg PO DAILY@0630 [facility] Last Admin: 01/17/23 08:26 Dose: 20 mg Propranolol HCl (Propranolol Hcl 20 Mg Tablet) 20 mg PO TID [facility]; Protocol Trazodone HCl (Trazodone Hcl 50 Mg Tablet) 50 mg PO BEDTIME PRN PRN Reason: Insomnia Allergies Allergies Allergy/AdvReac Type Severity Reaction Status Date / Time No Known Allergies Allergy Verified 01/12/23 10:41 Assessment & Plan Assessment & Plan (1) Routine history and physical examination of adult: Status: Acute Code(s): Z00.00 - Encounter for general adult medical examination without abnormal findings Plan Pt is a 62-year-old male with a PMH significant for?CAD, HLD, anxiety, hx of [place] three years ago, hx of CVA three years ago, hx of stomach ulcer, and bipolar disorder who is admitted to [facility] for increasing anxiety and depression and medication noncompliance. Medical consult for admission H&P. Patient states that he has no acute medical complaints at this Mood disorder Plan as per Psychiatry Elevated creatinine Patient's creatinine 1.54, slightly above creatinine of 1.37 from labs at [facility] on 01/11/2023 Baseline on known Patient likely mildly dehydrated from decreased p.o. intake Encourage p.o. intake of fluids CAD Continue statin History of CVA Continue statin, Eliquis GERD Continue pantoprazole HTN Continue lisinopril Thank you for allowing us to participate in the care of this patient. Signing off at this time. Please let us know if there are any acute complaints or questions. Plan 6/ d/c olanzapine as it may be worsening akathisia. increase propanolol 20mg po TID continue clonazepam. Reason for continued inpatient stay Substantial Risk for: inability to function Time Spent With Patient Time: Total time managing care of this patient today ____ minutes.
[2023-01-17] MEDS: clonazePAM 1 MG TABLET PO (11:53)
[2023-01-17 12:27] LABS: MANUAL DIFF FLAG NO
[2023-01-17 12:34] LABS: Basophils Absolute Auto 0.1 X10*3/uL (0.0-0.2); Basophils Percent Auto 1.1 % (0-2); Eosinophils Absolute Auto 0.5 X10*3/uL (0.0-0.4); Eosinophils Percent Auto 6.3 % (0-4); Hematocrit 41.2 % (42.0-52.0); Hemoglobin 13.3 g/dl (14.0-18.0); Imm Gran Abs Auto 0.02 X10*3/uL (0.00-0.03); Imm Gran Pct Auto 0.3 % (0.0-0.4); Lymphocytes Absolute Auto 1.7 X10*3/uL (1.2-4.9); Mean Corpuscular HGB Conc 32.3 g/dl (31.0-36.0); Mean Corpuscular Volume 89.8 fL (80.0-98.0); Mean Platelet Volume 12.6 fL (9.4-12.4); Monocytes Absolute Auto 0.7 X10*3/uL (0.1-1.2); Monocytes Percent Auto 9.5 % (2-11); Neutrophils Absolute Auto 4.6 x10*3/uL (2.0-8.3); Neutrophils Percent Auto 60.8 % (45-73); Platelet Count 256 X10*3/uL (160-400); Red Blood Count 4.59 X10*6/uL (4.60-5.80); Red Cell Distribution Width 13.6 % (11.0-16.0); White Blood Count 7.5 X10*3/uL (4.8-10.8)
[2023-01-17 13:05] LABS: Iron 43 mcg/dL (45-160); Percent Iron Saturation 16 % (15-50); Total Iron Binding Capacity 261 mcg/dL (228-428); Unsaturated Iron Binding 218 ug/dL
[2023-01-17 13:35] LABS: Folate 10.1 ng/mL (> or = 4.0); Vitamin B12 435 pg/mL (200-900)
[2023-01-17 14:50] VITALS: BP 100/53; PULSE 55
[2023-01-17 18:00] VITALS: BP 132/82; PULSE 89; RESP 18; TEMP 36.8; O2SAT 97
[2023-01-17] MEDS: Ferrous Sulfate 300 MG/5 ML LIQUID PO (18:13)
[2023-01-17] MEDS: Atorvastatin Calcium 80 MG TABLET PO (20:27)
[2023-01-18] MEDS: Acetaminophen 325 MG TABLET 650 MG PO (01:03)
[2023-01-18] MEDS: hydrOXYzine HCL 25 MG TABLET PO ×2 (01:03→21:46)
[2023-01-18] MEDS: traZODone HCL 50 MG TABLET PO ×3 (01:03→20:42)
[2023-01-18] MEDS: OLANZapine ODT 10 MG TAB.RAPDIS TRANSLINGU (04:32)
[2023-01-18] MEDS: Omeprazole 20 MG CAPSULE.DR PO (05:59)
[2023-01-18 08:14] VITALS: BP 164/76; PULSE 88; RESP 18; TEMP 36.4; O2SAT 96
[2023-01-18] MEDS: Apixaban 5 MG TABLET PO ×2 (08:42→16:55)
[2023-01-18] MEDS: Gabapentin 400 MG CAPSULE 800 MG PO ×3 (08:42→19:50)
[2023-01-18] MEDS: lisinopriL 10 MG TABLET PO (08:43)
[2023-01-18] MEDS: cloNIDine HCL 0.1 MG TABLET PO ×3 (08:43→19:51)
[2023-01-18] MEDS: clonazePAM 0.5 MG TABLET PO ×3 (08:43→21:00)
[2023-01-18] MEDS: Propranolol HCL 20 MG TABLET PO ×3 (08:43→19:51)
[2023-01-18] MEDS: Loperamide HCl 2 MG CAPSULE PO ×2 (10:52→15:15)
--- NOTE | 2023-01-18 11:31 | HO.PSYCHPN ---
Subjective Subjective Date of Service: 01/18/23 Reason For Visit: F32.9, F31.9 Subjective Notes: Conditional Voluntary Interim History: The nursing staff reported the patient has been anxious, unable to sleep last night asking frequently for Klonopin. Yesterday Zyprexa was discontinued due to the possibility of a CT lesion he could not sleep. A 04:00 o'clock in the morning he receive p.r.n. Zyprexa thick help her. The director social welfare reported that she med with his by cerumen apparently he had been restless not sleeping at night. The occupational therapist reported that he scored 4.0 on the Alek test and 24/30 on the [place] test. On interview the patient reported that he was extremely tired today that he could not sleep and he was feeling more anxious. We discussed options and he agreed to restart Zyprexa 10 mg p.o. q.h.s.. Mental Status Exam Mental Status Exam Patient Appearance: Well Grooomed and Appropriate Patient Orientation: Person and Situation Level of Consciousness: Awake and Appropriate Patient Behavior: Guarded and Passive Mood Description: Withdrawn Affect Description: Constricted Patient Cognition Impaired: Yes Ability to Follow Directions: Good Speech Pattern: Clear Hallucinations: None Delusions: Ideas of Reference Thought Process: Racing and Distracted Thought Content: positive for [place], positive for Circumstantial and positive for Thought Blocking Judgement: Poor Diagnostics Vital Signs (24Hr): Vital Signs - 24 hr 01/17/23 14:50 01/17/23 18:00 01/18/23 08:14 Temperature 98.2 F 97.6 F Pulse Rate 55 89 88 Respiratory Rate 18 18 Blood Pressure 100/53 L 132/82 164/76 H Pulse Oximetry 97 96 Oxygen Delivery Method Room Air Room Air BMI result Body Mass Index 26.2 Labs 01/17/23 12:23 01/12/23 07:58 Labs: Laboratory Results - last 48 hr 01/17/23 01/17/23 12:23 12:23 WBC 7.5 RBC 4.59 L Hgb 13.3 L Hct 41.2 L MCV 89.8 MCH 29.0 MCHC 32.3 RDW 13.6 Plt Count 256 MPV 12.6 H Immature Gran % (Auto) 0.3 Neut % (Auto) 60.8 Lymph % (Auto) 22.0 [place] % (Auto) 9.5 Eos % (Auto) 6.3 H Baso % (Auto) 1.1 Lymph # (Auto) 1.7 [place] # (Auto) 0.7 Eos # (Auto) 0.5 H Baso # (Auto) 0.1 Abs Immat Gran (auto) 0.02 Absolute Neuts (auto) 4.6 Absolute Nucleated RBC 0.000 Nucleated RBC % (auto) 0.0 Magnesium 2.0 Iron 43 L TIBC 261 % Saturation 16 Unsat Iron Binding 218 Vitamin B12 435 Folate 10.1 Medications Medications Current Medications Acetaminophen (Acetaminophen 325 Mg Tablet) 650 mg PO Q6H PRN PRN Reason: Headache/Pain Mild Scale (1-3) Last Admin: 01/18/23 01:03 Dose: 650 mg Al Hydroxide/Mg Hydroxide (Magnesium Hydrox/Alum Hydrox 30 Ml Oral.Susp) 30 ml PO Q6H PRN PRN Reason: Heartburn/Nausea Apixaban (Apixaban 5 Mg Tablet) 5 mg PO BID@0900,1700 [facility] Last Admin: 01/18/23 08:42 Dose: 5 mg Atorvastatin Calcium (Atorvastatin Calcium 80 Mg Tablet) 80 mg PO BEDTIME [facility] Last Admin: 01/17/23 20:27 Dose: 80 mg Clonazepam (Clonazepam 0.5 Mg Tablet) 0.5 mg PO TID [facility] Last Admin: 01/18/23 08:43 Dose: 0.5 mg Clonidine HCl (Clonidine Hcl 0.1 Mg Tablet) 0.1 mg PO TID [facility]; Protocol Last Admin: 01/18/23 08:43 Dose: 0.1 mg Ferrous Sulfate (Ferrous Sulfate 300 Mg/5 Ml Liquid) 300 mg PO Q48H [facility] Last Admin: 01/17/23 18:13 Dose: 300 mg Gabapentin (Gabapentin 400 Mg Capsule) 800 mg PO TID [facility] Last Admin: 01/18/23 08:42 Dose: 800 mg Hydroxyzine HCl (Hydroxyzine Hcl 25 Mg Tablet) 25 mg PO Q6H PRN PRN Reason: Anxiety Last Admin: 01/18/23 01:03 Dose: 25 mg Lisinopril (Lisinopril 10 Mg Tablet) 10 mg PO DAILY [facility]; Protocol Last Admin: 01/18/23 08:43 Dose: 10 mg Loperamide HCl (Loperamide Hcl 2 Mg Capsule) 2 mg PO Q4H PRN PRN Reason: Diarrhea Last Admin: 01/18/23 10:52 Dose: 2 mg Magnesium Hydroxide (Milk Of Magnesia 30 Ml Oral.Susp) 30 ml PO DAILY PRN PRN Reason: Constipation Nicotine Polacrilex (Nicotine Polacrilex 2 Mg Gum) 4 mg BUCCAL Q2H PRN PRN Reason: Nicotine Cravings Omeprazole (Omeprazole 20 Mg Capsule.Dr) 20 mg PO DAILY@0630 [facility] Last Admin: 01/18/23 05:59 Dose: 20 mg Propranolol HCl (Propranolol Hcl 20 Mg Tablet) 20 mg PO TID [facility]; Protocol Last Admin: 01/18/23 08:43 Dose: 20 mg Trazodone HCl (Trazodone Hcl 50 Mg Tablet) 50 mg PO BEDTIME PRN PRN Reason: Insomnia Last Admin: 01/18/23 01:57 Dose: 50 mg Allergies Allergies Allergy/AdvReac Type Severity Reaction Status Date / Time No Known Allergies Allergy Verified 01/12/23 10:41 Assessment & Plan Assessment & Plan (1) Routine history and physical examination of adult: Status: Acute Code(s): Z00.00 - Encounter for general adult medical examination without abnormal findings Plan Pt is a 62-year-old male with a PMH significant for?CAD, HLD, anxiety, hx of [place] three years ago, hx of CVA three years ago, hx of stomach ulcer, and bipolar disorder who is admitted to [facility] for increasing anxiety and depression and medication noncompliance. Medical consult for admission H&P. Patient states that he has no acute medical complaints at this Mood disorder Plan as per Psychiatry Elevated creatinine Patient's creatinine 1.54, slightly above creatinine of 1.37 from labs at [facility] on 01/11/2023 Baseline on known Patient likely mildly dehydrated from decreased p.o. intake Encourage p.o. intake of fluids CAD Continue statin History of CVA Continue statin, Eliquis GERD Continue pantoprazole HTN Continue lisinopril Thank you for allowing us to participate in the care of this patient. Signing off at this time. Please let us know if there are any acute complaints or questions. Plan / d/c olanzapine as it may be worsening akathisia. increase propanolol 20mg po TID continue clonazepam. On January 18, since the patient was unable to sleep we will restart Zyprexa at a lower dose 10 mg p.o. q.h.s.. Rest the same. Reason for continued inpatient stay Substantial Risk for: inability to function, rapid decompensation and med/psych decompensation Time Spent With Patient Time: Total time managing care of this patient today __20__ minutes.
[2023-01-18 14:35] VITALS: BP 134/78; PULSE 80
[2023-01-18 18:00] VITALS: BP 153/98; PULSE 98; RESP 18; TEMP 36.5; O2SAT 18
[2023-01-18] MEDS: OLANZapine 10 MG TABLET PO ×2 (18:12→19:51)
[2023-01-18] MEDS: Atorvastatin Calcium 80 MG TABLET PO (19:51)
[2023-01-19] MEDS: traZODone HCL 50 MG TABLET PO ×2 (00:30→19:59)
[2023-01-19 06:00] VITALS: BP 123/71; PULSE 85; RESP 18; TEMP 36.1; O2SAT 96
[2023-01-19] MEDS: Omeprazole 20 MG CAPSULE.DR PO (06:02)
[2023-01-19] MEDS: Gabapentin 400 MG CAPSULE 800 MG PO ×3 (08:27→19:59)
[2023-01-19] MEDS: lisinopriL 10 MG TABLET PO (08:27)
[2023-01-19] MEDS: cloNIDine HCL 0.1 MG TABLET PO ×3 (08:27→19:59)
[2023-01-19] MEDS: Apixaban 5 MG TABLET PO ×2 (08:28→18:03)
[2023-01-19] MEDS: clonazePAM 0.5 MG TABLET PO ×3 (08:28→19:59)
[2023-01-19] MEDS: Propranolol HCL 20 MG TABLET PO ×2 (08:28→19:58)
--- NOTE | 2023-01-19 12:28 | HO.PSYCHPN ---
Subjective Subjective Date of Service: 01/19/23 Reason For Visit: F32.9, F31.9 Subjective Notes: Conditional Voluntary Interim History: Nursing staff reported the patient took all his PRNs at night he slept only 3 hours he had been pacing in the hallway. On interview the patient reports racing thoughts so he decided to increase the Zyprexa to 15 mg p.o. q.h.s. since 10 mg is not enough. Mental Status Exam Mental Status Exam Patient Appearance: Well Grooomed Patient Orientation: Person and Situation Level of Consciousness: Awake and Appropriate Patient Behavior: Guarded and Passive Mood Description: Withdrawn Affect Description: Constricted Patient Cognition Impaired: Yes Ability to Follow Directions: Good Speech Pattern: Clear Hallucinations: None Delusions: Ideas of Reference Thought Process: Racing and Distracted Thought Content: positive for [place] and positive for [place] of Content Judgement: Fair Diagnostics Vital Signs (24Hr): Vital Signs - 24 hr 01/18/23 14:35 01/18/23 18:00 01/19/23 06:00 Temperature 97.7 F 96.9 F Pulse Rate 80 98 85 Respiratory Rate 18 18 Blood Pressure 134/78 153/98 H 123/71 Pulse Oximetry 18 L 96 Oxygen Delivery Method Room Air Room Air BMI result Body Mass Index 26.2 Labs 01/17/23 12:23 01/12/23 07:58 Labs: Laboratory Results - last 48 hr 01/17/23 01/17/23 12:23 12:23 WBC 7.5 RBC 4.59 L Hgb 13.3 L Hct 41.2 L MCV 89.8 MCH 29.0 MCHC 32.3 RDW 13.6 Plt Count 256 MPV 12.6 H Immature Gran % (Auto) 0.3 Neut % (Auto) 60.8 Lymph % (Auto) 22.0 [place] % (Auto) 9.5 Eos % (Auto) 6.3 H Baso % (Auto) 1.1 Lymph # (Auto) 1.7 [place] # (Auto) 0.7 Eos # (Auto) 0.5 H Baso # (Auto) 0.1 Abs Immat Gran (auto) 0.02 Absolute Neuts (auto) 4.6 Absolute Nucleated RBC 0.000 Nucleated RBC % (auto) 0.0 Magnesium 2.0 Iron 43 L TIBC 261 % Saturation 16 Unsat Iron Binding 218 Vitamin B12 435 Folate 10.1 Medications Medications Current Medications Acetaminophen (Acetaminophen 325 Mg Tablet) 650 mg PO Q6H PRN PRN Reason: Headache/Pain Mild Scale (1-3) Last Admin: 01/18/23 01:03 Dose: 650 mg Al Hydroxide/Mg Hydroxide (Magnesium Hydrox/Alum Hydrox 30 Ml Oral.Susp) 30 ml PO Q6H PRN PRN Reason: Heartburn/Nausea Apixaban (Apixaban 5 Mg Tablet) 5 mg PO BID@0900,1700 [facility] Last Admin: 01/19/23 08:28 Dose: 5 mg Atorvastatin Calcium (Atorvastatin Calcium 80 Mg Tablet) 80 mg PO BEDTIME [facility] Last Admin: 01/18/23 19:51 Dose: 80 mg Clonazepam (Clonazepam 0.5 Mg Tablet) 0.5 mg PO TID [facility] Last Admin: 01/19/23 08:28 Dose: 0.5 mg Clonidine HCl (Clonidine Hcl 0.1 Mg Tablet) 0.1 mg PO TID [facility]; Protocol Last Admin: 01/19/23 08:27 Dose: 0.1 mg Ferrous Sulfate (Ferrous Sulfate 300 Mg/5 Ml Liquid) 300 mg PO Q48H [facility] Last Admin: 01/17/23 18:13 Dose: 300 mg Gabapentin (Gabapentin 400 Mg Capsule) 800 mg PO TID [facility] Last Admin: 01/19/23 08:27 Dose: 800 mg Hydroxyzine HCl (Hydroxyzine Hcl 25 Mg Tablet) 25 mg PO Q6H PRN PRN Reason: Anxiety Last Admin: 01/18/23 21:46 Dose: 25 mg Lisinopril (Lisinopril 10 Mg Tablet) 10 mg PO DAILY [facility]; Protocol Last Admin: 01/19/23 08:27 Dose: 10 mg Loperamide HCl (Loperamide Hcl 2 Mg Capsule) 2 mg PO Q4H PRN PRN Reason: Diarrhea Last Admin: 01/18/23 15:15 Dose: 2 mg Magnesium Hydroxide (Milk Of Magnesia 30 Ml Oral.Susp) 30 ml PO DAILY PRN PRN Reason: Constipation Nicotine Polacrilex (Nicotine Polacrilex 2 Mg Gum) 4 mg BUCCAL Q2H PRN PRN Reason: Nicotine Cravings Olanzapine (Olanzapine 10 Mg Tablet) 10 mg PO BID PRN PRN Reason: Agitation Last Admin: 01/18/23 18:12 Dose: 10 mg Olanzapine (Olanzapine 7.5 Mg Tablet) 15 mg PO BEDTIME [facility] Omeprazole (Omeprazole 20 Mg Capsule.) 20 mg PO DAILY@0630 [facility] Last Admin: 01/19/23 06:02 Dose: 20 mg Propranolol HCl (Propranolol Hcl 20 Mg Tablet) 20 mg PO TID [facility]; Protocol Last Admin: 01/19/23 08:28 Dose: 20 mg Trazodone HCl (Trazodone Hcl 50 Mg Tablet) 50 mg PO BEDTIME PRN PRN Reason: Insomnia Last Admin: 01/19/23 00:30 Dose: 50 mg Allergies Allergies Allergy/AdvReac Type Severity Reaction Status Date / Time No Known Allergies Allergy Verified 01/12/23 10:41 Assessment & Plan Assessment & Plan (1) Routine history and physical examination of adult: Status: Acute Code(s): Z00.00 - Encounter for general adult medical examination without abnormal findings Plan Pt is a 62-year-old male with a PMH significant for?CAD, HLD, anxiety, hx of [place] three years ago, hx of CVA three years ago, hx of stomach ulcer, and bipolar disorder who is admitted to [facility] for increasing anxiety and depression and medication noncompliance. Medical consult for admission H&P. Patient states that he has no acute medical complaints at this Mood disorder Plan as per Psychiatry Elevated creatinine Patient's creatinine 1.54, slightly above creatinine of 1.37 from labs at [facility] on 01/11/2023 Baseline on known Patient likely mildly dehydrated from decreased p.o. intake Encourage p.o. intake of fluids CAD Continue statin History of CVA Continue statin, Eliquis GERD Continue pantoprazole HTN Continue lisinopril Thank you for allowing us to participate in the care of this patient. Signing off at this time. Please let us know if there are any acute complaints or questions. Plan / d/c olanzapine as it may be worsening akathisia. increase propanolol 20mg po TID continue clonazepam. On January 18, since the patient was unable to sleep we will restart Zyprexa at a lower dose 10 mg p.o. q.h.s.. Later on, on January 19 we increase it up to 50 mg since he was not sleeping still with racing thoughts. Reason for continued inpatient stay Substantial Risk for: inability to function, rapid decompensation and med/psych decompensation Time Spent With Patient Time: Total time managing care of this patient today __20__ minutes.
[2023-01-19] MEDS: OLANZapine 10 MG TABLET PO (13:36)
[2023-01-19 15:30] VITALS: BP 100/69
[2023-01-19] MEDS: Ferrous Sulfate 300 MG/5 ML LIQUID PO (18:03)
[2023-01-19 19:45] VITALS: BP 129/80; PULSE 86; RESP 18; TEMP 36.4; O2SAT 98
[2023-01-19] MEDS: OLANZapine 7.5 MG TABLET 15 MG PO (19:58)
[2023-01-19] MEDS: Atorvastatin Calcium 80 MG TABLET PO (19:59)
[2023-01-20 08:09] VITALS: BP 109/65; PULSE 78; RESP 18; TEMP 36.3; O2SAT 100
[2023-01-20] MEDS: Omeprazole 20 MG CAPSULE.DR PO (09:02)
[2023-01-20] MEDS: Gabapentin 400 MG CAPSULE 800 MG PO ×3 (09:02→20:01)
[2023-01-20] MEDS: lisinopriL 10 MG TABLET PO (09:03)
[2023-01-20] MEDS: Propranolol HCL 20 MG TABLET PO ×3 (09:03→20:02)
[2023-01-20] MEDS: OLANZapine 10 MG TABLET PO (09:03)
[2023-01-20] MEDS: clonazePAM 0.5 MG TABLET PO ×3 (09:03→20:00)
[2023-01-20] MEDS: cloNIDine HCL 0.1 MG TABLET PO ×3 (09:03→20:00)
[2023-01-20] MEDS: Apixaban 5 MG TABLET PO ×2 (09:03→17:40)
[2023-01-20] MEDS: Acetaminophen 325 MG TABLET 650 MG PO (10:36)
[2023-01-20] MEDS: hydrOXYzine HCL 25 MG TABLET PO (10:37)
[2023-01-20 13:35] VITALS: BMI 27.1
[2023-01-20 14:09] VITALS: BP 121/66; PULSE 75
--- NOTE | 2023-01-20 14:55 | PC.NURSE ---
At approximately 1230 Rob was noted to be increasingly restless and was seeking out this staff often and frequently requesting PRN medication for anxiety. He is very resistant to using coping skills and this proposal writer had no other medications to administer at that time. Rylie Cutler NP notified. No new orders at this time. Staff support provided and Rob was seen resting in bed after he received his 1500 mediations around 1410.
[2023-01-20 18:00] VITALS: BP 140/79; PULSE 70; RESP 18; TEMP 36.9; O2SAT 93
--- NOTE | 2023-01-20 19:19 | P.PNPSI_ITS ---
Subjective Subjective Date of Service: 01/20/23 Reason For Visit: F32.9, F31.9 Subjective Notes: Conditional Voluntary Interim History: Pt reports he slept better overnight. Pt denies SI/HI. He reports feeling restless and pacing and asking for PRN as he is able to. Per nursing, pt was able to sleep better last night with olanzapine. Mental Status Exam Mental Status Exam Patient Appearance: Well Grooomed and Appropriate Patient Orientation: Person, Place and Situation Level of Consciousness: Alert Patient Behavior: Anxious (restless) Mood Description: Anxious Affect Description: Constricted and Anxious Patient Cognition Impaired: Yes Ability to Follow Directions: Good Speech Pattern: Clear and Spontaneous Speech Hallucinations: None Delusions: Not Present Thought Process: Rumination Thought Content: positive for [place] Depressive Symptoms: Increased Anxiety Judgement: Fair Diagnostics Vital Signs (24Hr): Vital Signs - 24 hr 01/19/23 19:45 01/20/23 08:09 01/20/23 14:09 Temperature 97.6 F 97.3 F Pulse Rate 86 78 75 Respiratory Rate 18 18 Blood Pressure 129/80 109/65 121/66 Pulse Oximetry 98 100 Oxygen Delivery Method Room Air Room Air BMI result Body Mass Index 27.1 Labs 01/17/23 12:23 01/12/23 07:58 Medications Medications Current Medications Acetaminophen (Acetaminophen 325 Mg Tablet) 650 mg PO Q6H PRN PRN Reason: Headache/Pain Mild Scale (1-3) Last Admin: 01/20/23 10:36 Dose: 650 mg Al Hydroxide/Mg Hydroxide (Magnesium Hydrox/Alum Hydrox 30 Ml Oral.Susp) 30 ml PO Q6H PRN PRN Reason: Heartburn/Nausea Apixaban (Apixaban 5 Mg Tablet) 5 mg PO BID@0900,1700 [facility] Last Admin: 01/20/23 17:40 Dose: 5 mg Atorvastatin Calcium (Atorvastatin Calcium 80 Mg Tablet) 80 mg PO BEDTIME [facility] Last Admin: 01/19/23 19:59 Dose: 80 mg Clonazepam (Clonazepam 0.5 Mg Tablet) 0.5 mg PO TID [facility] Last Admin: 01/20/23 14:12 Dose: 0.5 mg Clonidine HCl (Clonidine Hcl 0.1 Mg Tablet) 0.1 mg PO TID [facility]; Protocol Last Admin: 01/20/23 14:12 Dose: 0.1 mg Ferrous Sulfate (Ferrous Sulfate 300 Mg/5 Ml Liquid) 300 mg PO Q48H [facility] Last Admin: 01/19/23 18:03 Dose: 300 mg Gabapentin (Gabapentin 400 Mg Capsule) 800 mg PO TID [facility] Last Admin: 01/20/23 14:12 Dose: 800 mg Hydroxyzine HCl (Hydroxyzine Hcl 25 Mg Tablet) 25 mg PO Q6H PRN PRN Reason: Anxiety Last Admin: 01/20/23 10:37 Dose: 25 mg Lisinopril (Lisinopril 10 Mg Tablet) 10 mg PO DAILY [facility]; Protocol Last Admin: 01/20/23 09:03 Dose: 10 mg Loperamide HCl (Loperamide Hcl 2 Mg Capsule) 2 mg PO Q4H PRN PRN Reason: Diarrhea Last Admin: 01/18/23 15:15 Dose: 2 mg Magnesium Hydroxide (Milk Of Magnesia 30 Ml Oral.Susp) 30 ml PO DAILY PRN PRN Reason: Constipation Nicotine Polacrilex (Nicotine Polacrilex 2 Mg Gum) 4 mg BUCCAL Q2H PRN PRN Reason: Nicotine Cravings Olanzapine (Olanzapine 10 Mg Tablet) 10 mg PO BID PRN PRN Reason: Agitation Last Admin: 01/20/23 09:03 Dose: 10 mg Olanzapine (Olanzapine 7.5 Mg Tablet) 15 mg PO BEDTIME [facility] Last Admin: 01/19/23 19:58 Dose: 15 mg Omeprazole (Omeprazole 20 Mg Capsule.Dr) 20 mg PO DAILY@0630 [facility] Last Admin: 01/20/23 09:02 Dose: 20 mg Propranolol HCl (Propranolol Hcl 20 Mg Tablet) 20 mg PO TID [facility]; Protocol Last Admin: 01/20/23 14:12 Dose: 20 mg Trazodone HCl (Trazodone Hcl 50 Mg Tablet) 50 mg PO BEDTIME PRN PRN Reason: Insomnia Last Admin: 01/19/23 19:59 Dose: 50 mg Allergies Allergies Allergy/AdvReac Type Severity Reaction Status Date / Time No Known Allergies Allergy Verified 01/12/23 10:41 Assessment & Plan Assessment & Plan (1) Bipolar affect, depressed: Status: Acute Code(s): F31.30 - Bipolar disorder, current episode depressed, mild or moderate severity, unspecified Plan Pt is a 62-year-old male with a PMH significant for?CAD, HLD, anxiety, hx of [place] three years ago, hx of CVA three years ago, hx of stomach ulcer, and bipolar disorder who is admitted to [facility] for increasing anxiety and depression and medication noncompliance. Medical consult for admission H&P. Patient states that he has no acute medical complaints at this Mood disorder Plan as per Psychiatry Elevated creatinine Patient's creatinine 1.54, slightly above creatinine of 1.37 from labs at [facility] on 01/11/2023 Baseline on known Patient likely mildly dehydrated from decreased p.o. intake Encourage p.o. intake of fluids CAD Continue statin History of CVA Continue statin, Eliquis GERD Continue pantoprazole HTN Continue lisinopril Thank you for allowing us to participate in the care of this patient. Signing off at this time. Please let us know if there are any acute complaints or questions. Plan 01/17 d/c olanzapine as it may be worsening akathisia. increase propanolol 20mg po TID continue clonazepam. On January 18, since the patient was unable to sleep we will restart Zyprexa at a lower dose 10 mg p.o. q.h.s.. Later on, on January 19 we increase it up to 50 mg since he was not sleeping still with racing thoughts. 01/20 continue current medications Reason for continued inpatient stay Substantial Risk for: inability to function Time Spent With Patient Time: Total time managing care of this patient today ____ minutes.
[2023-01-20] MEDS: Atorvastatin Calcium 80 MG TABLET PO (20:00)
[2023-01-20] MEDS: OLANZapine 7.5 MG TABLET 15 MG PO (20:01)
[2023-01-20] MEDS: traZODone HCL 50 MG TABLET PO ×2 (20:03→23:01)
[2023-01-21 08:35] VITALS: BP 142/62; PULSE 73; RESP 18; TEMP 36.8; O2SAT 98
[2023-01-21] MEDS: Gabapentin 400 MG CAPSULE 800 MG PO ×3 (08:41→20:17)
[2023-01-21] MEDS: clonazePAM 0.5 MG TABLET PO ×3 (08:41→20:16)
[2023-01-21] MEDS: Omeprazole 20 MG CAPSULE.DR PO (08:42)
[2023-01-21] MEDS: Apixaban 5 MG TABLET PO ×2 (08:42→17:05)
[2023-01-21] MEDS: Propranolol HCL 20 MG TABLET PO ×3 (08:42→20:19)
[2023-01-21] MEDS: lisinopriL 10 MG TABLET PO (08:42)
[2023-01-21] MEDS: cloNIDine HCL 0.1 MG TABLET PO ×3 (08:42→20:16)
--- NOTE | 2023-01-21 16:55 | P.PNPSI_ITS ---
Subjective Subjective Date of Service: 01/21/23 Reason For Visit: F32.9, F31.9 Subjective Notes: Conditional Voluntary Interim History: Pt reports feeling less anxious today. Pt reports sleeping well. He reports end of the day yesterday he was still feeling restless and pacing. He denies SI/HI. He reports eating well. No behavioral concerns. Per nursing, pt slept 6 hrs. Medication Compliance: Yes Review of Systems Review of Systems Patient has no acute medical complaints at this time Yes all other systems are reviewed and are negative Mental Status Exam Mental Status Exam Narrative: Appearance: wearing hospital gown, fair hygiene, in NAD Behavior: cooperative Psychomotor: no agitation or retardation noted Speech: clear, normal rate/rhythm/volume, spontaneous TP: linear TC: no psychosis or delusions, feeling less anxious Mood: better Affect: congruent SI: denies HI: denies VH/AH: none Delusions: none Insight/judgment: fair x 2. Memory/cog: alert, oriented x 3. not formally tested. Diagnostics Vital Signs (24Hr): Vital Signs - 24 hr 01/20/23 18:00 01/21/23 08:35 Temperature 98.5 F 98.2 F Pulse Rate 70 73 Respiratory Rate 18 18 Blood Pressure 140/79 H 142/62 H Pulse Oximetry 93 98 Oxygen Delivery Method Room Air Room Air BMI result Body Mass Index 27.1 Labs 01/17/23 12:23 01/12/23 07:58 Medications Medications Current Medications Acetaminophen (Acetaminophen 325 Mg Tablet) 650 mg PO Q6H PRN PRN Reason: Headache/Pain Mild Scale (1-3) Last Admin: 01/20/23 10:36 Dose: 650 mg Al Hydroxide/Mg Hydroxide (Magnesium Hydrox/Alum Hydrox 30 Ml Oral.Susp) 30 ml PO Q6H PRN PRN Reason: Heartburn/Nausea Apixaban (Apixaban 5 Mg Tablet) 5 mg PO BID@0900,1700 [facility] Last Admin: 01/21/23 08:42 Dose: 5 mg Atorvastatin Calcium (Atorvastatin Calcium 80 Mg Tablet) 80 mg PO BEDTIME [facility] Last Admin: 01/20/23 20:00 Dose: 80 mg Clonazepam (Clonazepam 0.5 Mg Tablet) 0.5 mg PO TID [facility] Last Admin: 01/21/23 14:41 Dose: 0.5 mg Clonidine HCl (Clonidine Hcl 0.1 Mg Tablet) 0.1 mg PO TID [facility]; Protocol Last Admin: 01/21/23 14:41 Dose: 0.1 mg Ferrous Sulfate (Ferrous Sulfate 300 Mg/5 Ml Liquid) 300 mg PO Q48H [facility] Last Admin: 01/19/23 18:03 Dose: 300 mg Gabapentin (Gabapentin 400 Mg Capsule) 800 mg PO TID [facility] Last Admin: 01/21/23 14:41 Dose: 800 mg Hydroxyzine HCl (Hydroxyzine Hcl 25 Mg Tablet) 25 mg PO Q6H PRN PRN Reason: Anxiety Last Admin: 01/20/23 10:37 Dose: 25 mg Lisinopril (Lisinopril 10 Mg Tablet) 10 mg PO DAILY [facility]; Protocol Last Admin: 01/21/23 08:42 Dose: 10 mg Loperamide HCl (Loperamide Hcl 2 Mg Capsule) 2 mg PO Q4H PRN PRN Reason: Diarrhea Last Admin: 01/18/23 15:15 Dose: 2 mg Magnesium Hydroxide (Milk Of Magnesia 30 Ml Oral.Susp) 30 ml PO DAILY PRN PRN Reason: Constipation Nicotine Polacrilex (Nicotine Polacrilex 2 Mg Gum) 4 mg BUCCAL Q2H PRN PRN Reason: Nicotine Cravings Olanzapine (Olanzapine 10 Mg Tablet) 10 mg PO BID PRN PRN Reason: Agitation Last Admin: 01/20/23 09:03 Dose: 10 mg Olanzapine (Olanzapine 7.5 Mg Tablet) 15 mg PO BEDTIME [facility] Last Admin: 01/20/23 20:01 Dose: 15 mg Omeprazole (Omeprazole 20 Mg Capsule.Dr) 20 mg PO DAILY@0630 [facility] Last Admin: 01/21/23 08:42 Dose: 20 mg Propranolol HCl (Propranolol Hcl 20 Mg Tablet) 20 mg PO TID [facility]; Protocol Last Admin: 01/21/23 14:41 Dose: 20 mg Trazodone HCl (Trazodone Hcl 50 Mg Tablet) 50 mg PO BEDTIME PRN PRN Reason: Insomnia Last Admin: 01/20/23 23:01 Dose: 50 mg Allergies Allergies Allergy/AdvReac Type Severity Reaction Status Date / Time No Known Allergies Allergy Verified 01/12/23 10:41 Assessment & Plan Assessment & Plan (1) Bipolar affect, depressed: Status: Acute Code(s): F31.30 - Bipolar disorder, current episode depressed, mild or moderate severity, unspecified Plan Pt is a 62-year-old male with a PMH significant for?CAD, HLD, anxiety, hx of [place] three years ago, hx of CVA three years ago, hx of stomach ulcer, and bipolar disorder who is admitted to [facility] for increasing anxiety and depression and medication noncompliance. Medical consult for admission H&P. Patient states that he has no acute medical complaints at this Mood disorder Plan as per Psychiatry Elevated creatinine Patient's creatinine 1.54, slightly above creatinine of 1.37 from labs at [facility] on 01/11/2023 Baseline on known Patient likely mildly dehydrated from decreased p.o. intake Encourage p.o. intake of fluids CAD Continue statin History of CVA Continue statin, Eliquis GERD Continue pantoprazole HTN Continue lisinopril Thank you for allowing us to participate in the care of this patient. Signing off at this time. Please let us know if there are any acute complaints or quest ions. Plan 01/17 d/c olanzapine as it may be worsening akathisia. increase propanolol 20mg po TID continue clonazepam. On January 18, since the patient was unable to sleep we will restart Zyprexa at a lower dose 10 mg p.o. q.h.s.. Later on, on January 19 we increase it up to 50 mg since he was not sleeping still with racing thoughts. 01/20 continue current medications 01/21 continue tx. Reason for continued inpatient stay Substantial Risk for: inability to function Time Spent With Patient Time: Total time managing care of this patient today ____ minutes.
[2023-01-21 18:00] VITALS: BP 125/59; PULSE 60; RESP 18; TEMP 36.3; O2SAT 98
[2023-01-21] MEDS: Atorvastatin Calcium 80 MG TABLET PO (20:16)
[2023-01-21] MEDS: OLANZapine 7.5 MG TABLET 15 MG PO (20:17)
[2023-01-22 08:00] VITALS: BP 122/76; PULSE 60; RESP 18; TEMP 36.6; O2SAT 98
[2023-01-22] MEDS: Gabapentin 400 MG CAPSULE 800 MG PO ×3 (08:11→21:08)
[2023-01-22] MEDS: clonazePAM 0.5 MG TABLET PO ×3 (08:12→21:08)
[2023-01-22] MEDS: cloNIDine HCL 0.1 MG TABLET PO ×3 (08:12→21:10)
[2023-01-22] MEDS: Omeprazole 20 MG CAPSULE.DR PO (08:12)
[2023-01-22] MEDS: lisinopriL 10 MG TABLET PO (08:12)
[2023-01-22] MEDS: Apixaban 5 MG TABLET PO ×2 (08:12→17:15)
[2023-01-22] MEDS: Propranolol HCL 20 MG TABLET PO ×3 (08:12→21:07)
[2023-01-22] MEDS: OLANZapine 10 MG TABLET PO (11:07)
[2023-01-22 18:00] VITALS: BP 119/55; PULSE 62; RESP 16; TEMP 36.9; O2SAT 97
--- NOTE | 2023-01-22 18:18 | P.PNPSI_ITS ---
Subjective Subjective Date of Service: 01/22/23 Reason For Visit: F32.9, F31.9 Subjective Notes: Conditional Voluntary Interim History: Pt initially reported feeling less anxious but later reported feeling very anxious and restless and asking for more clonazepam. Pt adivsed to discuss with his primary attending tomorrow as multiple medication changes have been done recently. Pt reports sleeping well. He reports end of the day yesterday he was still feeling restless and pacing. He denies SI/HI. He reports eating well. No behavioral concerns. Per nursing, pt slept 6 hrs. Review of Systems Review of Systems Patient has no acute medical complaints at this time Yes all other systems are reviewed and are negative Mental Status Exam Mental Status Exam Narrative: Appearance: wearing hospital gown, fair hygiene, in NAD Behavior: cooperative Psychomotor: no agitation or retardation noted Speech: clear, normal rate/rhythm/volume, spontaneous TP: linear TC: no psychosis or delusions, feeling less anxious Mood: better Affect: congruent SI: denies HI: denies VH/AH: none Delusions: none Insight/judgment: fair x 2. Memory/cog: alert, oriented x 3. not formally tested. Patient Appearance: Well Grooomed and Appropriate Patient Orientation: Person, Place and Situation Level of Consciousness: Alert Patient Behavior: Anxious (restless) Mood Description: Anxious Affect Description: Constricted and Anxious Patient Cognition Impaired: Yes Ability to Follow Directions: Good Speech Pattern: Clear and Spontaneous Speech Diagnostics Vital Signs (24Hr): Vital Signs - 24 hr 01/22/23 08:00 Temperature 97.9 F Pulse Rate 60 Respiratory Rate 18 Blood Pressure 122/76 Pulse Oximetry 98 Oxygen Delivery Method Room Air BMI result Body Mass Index 27.1 Labs 01/17/23 12:23 01/12/23 07:58 Medications Medications Current Medications Acetaminophen (Acetaminophen 325 Mg Tablet) 650 mg PO Q6H PRN PRN Reason: Headache/Pain Mild Scale (1-3) Last Admin: 01/20/23 10:36 Dose: 650 mg Al Hydroxide/Mg Hydroxide (Magnesium Hydrox/Alum Hydrox 30 Ml Oral.Susp) 30 ml PO Q6H PRN PRN Reason: Heartburn/Nausea Apixaban (Apixaban 5 Mg Tablet) 5 mg PO BID@0900,1700 [facility] Last Admin: 01/22/23 17:15 Dose: 5 mg Atorvastatin Calcium (Atorvastatin Calcium 80 Mg Tablet) 80 mg PO BEDTIME [facility] Last Admin: 01/21/23 20:16 Dose: 80 mg Clonazepam (Clonazepam 0.5 Mg Tablet) 0.5 mg PO TID [facility] Last Admin: 01/22/23 14:44 Dose: 0.5 mg Clonidine HCl (Clonidine Hcl 0.1 Mg Tablet) 0.1 mg PO TID [facility]; Protocol Last Admin: 01/22/23 14:44 Dose: 0.1 mg Ferrous Sulfate (Ferrous Sulfate 300 Mg/5 Ml Liquid) 300 mg PO Q48H [facility] Last Admin: 01/21/23 18:02 Dose: Not Given Gabapentin (Gabapentin 400 Mg Capsule) 800 mg PO TID [facility] Last Admin: 01/22/23 14:43 Dose: 800 mg Hydroxyzine HCl (Hydroxyzine Hcl 25 Mg Tablet) 25 mg PO Q6H PRN PRN Reason: Anxiety Last Admin: 01/20/23 10:37 Dose: 25 mg Lisinopril (Lisinopril 10 Mg Tablet) 10 mg PO DAILY [facility]; Protocol Last Admin: 01/22/23 08:12 Dose: 10 mg Loperamide HCl (Loperamide Hcl 2 Mg Capsule) 2 mg PO Q4H PRN PRN Reason: Diarrhea Last Admin: 01/18/23 15:15 Dose: 2 mg Magnesium Hydroxide (Milk Of Magnesia 30 Ml Oral.Susp) 30 ml PO DAILY PRN PRN Reason: Constipation Nicotine Polacrilex (Nicotine Polacrilex 2 Mg Gum) 4 mg BUCCAL Q2H PRN PRN Reason: Nicotine Cravings Olanzapine (Olanzapine 10 Mg Tablet) 10 mg PO BID PRN PRN Reason: Agitation Last Admin: 01/22/23 11:07 Dose: 10 mg Olanzapine (Olanzapine 7.5 Mg Tablet) 15 mg PO BEDTIME [facility] Last Admin: 01/21/23 20:17 Dose: 15 mg Omeprazole (Omeprazole 20 Mg Capsule.Dr) 20 mg PO DAILY@0630 [facility] Last Admin: 01/22/23 08:12 Dose: 20 mg Propranolol HCl (Propranolol Hcl 20 Mg Tablet) 20 mg PO TID [facility]; Protocol Last Admin: 01/22/23 14:44 Dose: 20 mg Trazodone HCl (Trazodone Hcl 50 Mg Tablet) 50 mg PO BEDTIME PRN PRN Reason: Insomnia Last Admin: 01/20/23 23:01 Dose: 50 mg Allergies Allergies Allergy/AdvReac Type Severity Reaction Status Date / Time No Known Allergies Allergy Verified 01/12/23 10:41 Assessment & Plan Assessment & Plan (1) Bipolar affect, depressed: Status: Acute Code(s): F31.30 - Bipolar disorder, current episode depressed, mild or moderate severity, unspecified Plan Pt is a 62-year-old male with a PMH significant for?CAD, HLD, anxiety, hx of [place] three years ago, hx of CVA three years ago, hx of stomach ulcer, and bipolar d isorder who is admitted to [facility] for increasing anxiety and depression and medication noncompliance. Medical consult for admission H&P. Patient states that he has no acute medical complaints at this Mood disorder Plan as per Psychiatry Elevated creatinine Patient's creatinine 1.54, slightly above creatinine of 1.37 from labs at [facility] on 01/11/2023 Baseline on known Patient likely mildly dehydrated from decreased p.o. intake Encourage p.o. intake of fluids CAD Continue statin History of CVA Continue statin, Eliquis GERD Continue pantoprazole HTN Continue lisinopril Thank you for allowing us to participate in the care of this patient. Signing off at this time. Please let us know if there are any acute complaints or questions. Plan 01/17 d/c olanzapine as it may be worsening akathisia. increase propanolol 20mg po TID continue clonazepam. On January 18, since the patient was unable to sleep we will restart Zyprexa at a lower dose 10 mg p.o. q.h.s.. Later on, on January 19 we increase it up to 50 mg since he was not sleeping still with racing thoughts. 01/20 continue current medications 01/21 continue tx. 01/22 continue tx. Reason for continued inpatient stay Substantial Risk for: inability to function Time Spent With Patient Time: Total time managing care of this patient today ____ minutes.
[2023-01-22] MEDS: Atorvastatin Calcium 80 MG TABLET PO (21:07)
[2023-01-22] MEDS: OLANZapine 7.5 MG TABLET 15 MG PO (21:08)
[2023-01-22] MEDS: traZODone HCL 50 MG TABLET PO (21:10)
[2023-01-23] MEDS: Omeprazole 20 MG CAPSULE.DR PO (06:07)
[2023-01-23 07:53] VITALS: BP 112/65; PULSE 64; RESP 20; TEMP 36.3; O2SAT 100
[2023-01-23] MEDS: Apixaban 5 MG TABLET PO ×2 (08:00→16:24)
[2023-01-23] MEDS: Gabapentin 400 MG CAPSULE 800 MG PO ×3 (08:01→20:35)
[2023-01-23] MEDS: Propranolol HCL 20 MG TABLET PO ×3 (08:01→20:35)
[2023-01-23] MEDS: lisinopriL 10 MG TABLET PO (08:01)
[2023-01-23] MEDS: cloNIDine HCL 0.1 MG TABLET PO ×3 (08:01→20:35)
[2023-01-23] MEDS: clonazePAM 0.5 MG TABLET PO (08:01)
[2023-01-23] MEDS: Acetaminophen 325 MG TABLET 650 MG PO ×2 (09:31→15:26)
--- NOTE | 2023-01-23 10:16 | P.PNPSI_ITS ---
Subjective Subjective Date of Service: 01/23/23 Reason For Visit: F32.9, F31.9 Subjective Notes: Conditional Voluntary Interim History: The nursing staff reported that he should had been more anxious, improved appetite. He slept last night for a few hours and he has been up and down. On interview the patient reports feeling restless, he agreed increase Zyprexa to 20 mg p.o. q.h.s and since he is still restless and anxious, we will increase Klonopin up to 1 mg po tid. We will try to contact his and get more collateral information and a family meeting for discharge planning. Mental Status Exam Mental Status Exam Patient Appearance: Appropriate Patient Orientation: Person and Situation Level of Consciousness: Awake and Appropriate Patient Behavior: Guarded and Passive Mood Description: Withdrawn Affect Description: Constricted Patient Cognition Impaired: Yes Ability to Follow Directions: Good Speech Pattern: Clear Hallucinations: None Delusions: Ideas of Reference Thought Process: Distracted and Evasive Thought Content: positive for [place] Judgement: Fair Diagnostics Vital Signs (24Hr): Vital Signs - 24 hr 01/22/23 18:00 01/23/23 07:53 Temperature 98.4 F 97.3 F Pulse Rate 62 64 Respiratory Rate 16 20 Blood Pressure 119/55 L 112/65 Pulse Oximetry 97 100 Oxygen Delivery Method Room Air Room Air BMI result Body Mass Index 27.1 Labs 01/17/23 12:23 01/12/23 07:58 Medications Medications Current Medications Acetaminophen (Acetaminophen 325 Mg Tablet) 650 mg PO Q6H PRN PRN Reason: Headache/Pain Mild Scale (1-3) Last Admin: 01/23/23 09:31 Dose: 650 mg Al Hydroxide/Mg Hydroxide (Magnesium Hydrox/Alum Hydrox 30 Ml Oral.Susp) 30 ml PO Q6H PRN PRN Reason: Heartburn/Nausea Apixaban (Apixaban 5 Mg Tablet) 5 mg PO BID@0900,1700 [facility] Last Admin: 01/23/23 08:00 Dose: 5 mg Atorvastatin Calcium (Atorvastatin Calcium 80 Mg Tablet) 80 mg PO BEDTIME [facility] Last Admin: 01/22/23 21:07 Dose: 80 mg Clonazepam (Clonazepam 0.5 Mg Tablet) 0.5 mg PO TID [facility] Last Admin: 01/23/23 08:01 Dose: 0.5 mg Clonidine HCl (Clonidine Hcl 0.1 Mg Tablet) 0.1 mg PO TID [facility]; Protocol Last Admin: 01/23/23 08:01 Dose: 0.1 mg Ferrous Sulfate (Ferrous Sulfate 300 Mg/5 Ml Liquid) 300 mg PO Q48H [facility] Last Admin: 01/21/23 18:02 Dose: Not Given Gabapentin (Gabapentin 400 Mg Capsule) 800 mg PO TID [facility] Last Admin: 01/23/23 08:01 Dose: 800 mg Hydroxyzine HCl (Hydroxyzine Hcl 25 Mg Tablet) 25 mg PO Q6H PRN PRN Reason: Anxiety Last Admin: 01/20/23 10:37 Dose: 25 mg Lisinopril (Lisinopril 10 Mg Tablet) 10 mg PO DAILY [facility]; Protocol Last Admin: 01/23/23 08:01 Dose: 10 mg Loperamide HCl (Loperamide Hcl 2 Mg Capsule) 2 mg PO Q4H PRN PRN Reason: Diarrhea Last Admin: 01/18/23 15:15 Dose: 2 mg Magnesium Hydroxide (Milk Of Magnesia 30 Ml Oral.Susp) 30 ml PO DAILY PRN PRN Reason: Constipation Nicotine Polacrilex (Nicotine Polacrilex 2 Mg Gum) 4 mg BUCCAL Q2H PRN PRN Reason: Nicotine Cravings Olanzapine (Olanzapine 10 Mg Tablet) 10 mg PO BID PRN PRN Reason: Agitation Last Admin: 01/22/23 11:07 Dose: 10 mg Olanzapine (Olanzapine 10 Mg Tablet) 20 mg PO BEDTIME [facility] Omeprazole (Omeprazole 20 Mg Capsule.Dr) 20 mg PO DAILY@0630 [facility] Last Admin: 01/23/23 06:07 Dose: 20 mg Propranolol HCl (Propranolol Hcl 20 Mg Tablet) 20 mg PO TID [facility]; Protocol Last Admin: 01/23/23 08:01 Dose: 20 mg Trazodone HCl (Trazodone Hcl 50 Mg Tablet) 50 mg PO BEDTIME PRN PRN Reason: Insomnia Last Admin: 01/22/23 21:10 Dose: 50 mg Allergies Allergies Allergy/AdvReac Type Severity Reaction Status Date / Time No Known Allergies Allergy Verified 01/12/23 10:41 Assessment & Plan Assessment & Plan (1) Bipolar affect, depressed: Status: Acute Code(s): F31.30 - Bipolar disorder, current episode depressed, mild or moderate severity, unspecified Plan Pt is a 62-year-old male with a PMH significant for?CAD, HLD, anxiety, hx of [place] three years ago, hx of CVA three years ago, hx of stomach ulcer, and bipolar disorder who is admitted to [facility] for increasing anxiety and depression and medication noncompliance. Medical consult for admission H&P. Patient states that he has no acute medical complaints at this Mood disorder Plan as per Psychiatry Elevated creatinine Patient's creatinine 1.54, slightly above creatinine of 1.37 from labs at [facility] on 01/11/2023 Baseline on known Patient likely mildly dehydrated from decreased p.o. intake Encourage p.o. intake of fluids CAD Continue statin History of CVA Continue statin, Eliquis GERD Continue pantoprazole HTN Continue lisinopril Thank you for allowing us to participate in the care of this patient. Signing off at this time. Please let us know if there are any acute complaints or questions. Plan 01/17 d/c olanzapine as it may be worsening akathisia. increase propanolol 20mg po TID continue clonazepam. On January 18, since the patient was unable to sleep we will restart Zyprexa at a lower dose 10 mg p.o. q.h.s.. Later on, on January 19 we increase it up to 50 mg since he was not sleeping still with racing thoughts. Finally in January 23 we increase Zyprexa up to 20 mg p.o. q.h.s. to target rizwana and insomnia. Klonopin increased up to 1 mg po tid on January 23. Reason for continued inpatient stay Substantial Risk for: inability to function, rapid decompensation and med/psych decompensation Time Spent With Patient Time: Total time managing care of this patient today __20__ minutes.
[2023-01-23] MEDS: hydrOXYzine HCL 25 MG TABLET PO (11:40)
[2023-01-23 14:00] VITALS: BP 143/77; PULSE 86
[2023-01-23] MEDS: clonazePAM 1 MG TABLET PO ×2 (14:02→20:35)
--- NOTE | 2023-01-23 14:43 | PM.EVENT ---
Event Note Date of Service: 01/23/23 Event Note: 62-year-old male with history of pulmonary embolism anticoagulated with Eliquis, hyperlipidemia admitted to Psychiatry. Request was placed to evaluate patient for left-sided rib pain. The patient reports that he believes this is related to an old injury but he is unable to provide me with details but does state he has had intermittent pain in this area for some time. He states he rolled over in bed and felt sudden onset sharp pain that was nonradiating and heard a ?crack?. He does endorse some pleuritic chest pain as well in this area but denies any retrosternal chest pressure. There is no shortness of breath, fevers, chills, cough. Will evaluate x-ray of the left ribs for reproducible focal tenderness over the left 9th-11th ribs. Recommend pain management with Tylenol, lidocaine patch. Time Spent With Patient Time: Total time managing care of this patient today ____ minutes.
[2023-01-23] MEDS: Lidocaine 4 % Patch ADH..PATCH 1 PATCH TRANSDERMA (15:26)
--- NOTE | 2023-01-23 16:01 | PC.NURSE ---
Rob approached this rewriter at approximately 1400 and c/o 10/10 left sided rib pain. I think I broke my rib. It's from an old injury. Rob has had not any recent falls and he was not noted to be guarding his left side. Respirations free and easy. Dr. Warner notified of rib pain and SOPHIA Mullen came to assess Rob. Rob was taken for STAT xray ribs and Lidocaine path applied. Rob reported pain decreased to a 6/10 post xray prior to Lidocaine patch being applied. He was administered Tylenol as well for pain. Rob is currently walking around the unit and doesn't appear to be in any distress.
[2023-01-23] MEDS: Ferrous Sulfate 300 MG/5 ML LIQUID PO (16:24)
--- NOTE | 2023-01-23 17:21 | PC.NURSE ---
Notified Dr. Warner about possible acute rib fx of 8th anterior rib. No need orders at this time.
[2023-01-23 18:00] VITALS: BP 132/60; PULSE 74; RESP 18; TEMP 36.8; O2SAT 96
[2023-01-23] MEDS: Atorvastatin Calcium 80 MG TABLET PO (20:35)
[2023-01-23] MEDS: OLANZapine 10 MG TABLET 20 MG PO (20:35)
[2023-01-24] MEDS: hydrOXYzine HCL 25 MG TABLET PO (01:10)
[2023-01-24] MEDS: Acetaminophen 325 MG TABLET 650 MG PO ×3 (01:10→14:42)
[2023-01-24 08:01] VITALS: BP 115/62; PULSE 69; RESP 18; TEMP 36.2; O2SAT 99
[2023-01-24] MEDS: lisinopriL 10 MG TABLET PO (08:41)
[2023-01-24] MEDS: clonazePAM 1 MG TABLET PO ×3 (08:41→19:42)
[2023-01-24] MEDS: Gabapentin 400 MG CAPSULE 800 MG PO ×3 (08:41→19:42)
[2023-01-24] MEDS: cloNIDine HCL 0.1 MG TABLET PO ×3 (08:41→19:42)
[2023-01-24] MEDS: Apixaban 5 MG TABLET PO ×2 (08:42→16:37)
[2023-01-24] MEDS: Propranolol HCL 20 MG TABLET PO ×2 (08:42→14:42)
[2023-01-24] MEDS: traMADoL HCL 50 MG TABLET PO ×2 (09:14→15:19)
[2023-01-24] MEDS: Lidocaine 4 % Patch ADH..PATCH 1 PATCH TRANSDERMA (09:17)
--- NOTE | 2023-01-24 10:04 | HO.PSYCHPN ---
Subjective Subjective Date of Service: 01/24/23 Reason For Visit: F32.9, F31.9 Subjective Notes: Conditional Voluntary Interim History: The nursing staff reported the patient had been complaining of pain, yesterday we discussed the case with medical team and apparently he has old fractures in his chest. He had been sleeping much better since we increased Zyprexa up to 20 mg but still on pain sporadically. We will add tramadol 50 mg p.o. p.r.n. for pain. Also, anxiety is less since Klonopin was increased up to 1 mg p.o. t.i.d.. The oncology social worker reported that the PCP was contacted to the referrals for intensive case managing. On interview the patient reports pain and I explained him the tramadol will helping with it. No new complaints besides pain on his chest Mental Status Exam Mental Status Exam Patient Appearance: Appropriate Patient Orientation: Person and Situation Level of Consciousness: Awake and Appropriate Patient Behavior: Guarded and Passive Mood Description: Withdrawn and Constricted Affect Description: Constricted Patient Cognition Impaired: Yes Ability to Follow Directions: Good Speech Pattern: Clear Hallucinations: None Delusions: Not Present Thought Process: Distracted and Slowed Thinking Thought Content: positive for [place] and positive for Circumstantial Judgement: Fair Diagnostics Vital Signs (24Hr): Vital Signs - 24 hr 01/23/23 14:00 01/23/23 18:00 01/24/23 08:01 Temperature 98.2 F 97.2 F Pulse Rate 86 74 69 Respiratory Rate 18 18 Blood Pressure 143/77 H 132/60 115/62 Pulse Oximetry 96 99 Oxygen Delivery Method Room Air Room Air BMI result Body Mass Index 27.1 Labs 01/17/23 12:23 01/12/23 07:58 Imaging Radiology Impressions: ITS Impressions Ribs X-Ray 01/23/23 15:09 IMPRESSION: No evidence for acute disease in the chest. Old or healing left posterior sixth through ninth rib fractures. Question more recent or acute left anterior eighth rib fracture and left renal stone. Medications Medications Current Medications Acetaminophen (Acetaminophen 325 Mg Tablet) 650 mg PO Q6H PRN PRN Reason: Headache/Pain Mild Scale (1-3) Last Admin: 01/24/23 08:41 Dose: 650 mg Al Hydroxide/Mg Hydroxide (Magnesium Hydrox/Alum Hydrox 30 Ml Oral.Susp) 30 ml PO Q6H PRN PRN Reason: Heartburn/Nausea Apixaban (Apixaban 5 Mg Tablet) 5 mg PO BID@0900,1700 [facility] Last Admin: 01/24/23 08:42 Dose: 5 mg Atorvastatin Calcium (Atorvastatin Calcium 80 Mg Tablet) 80 mg PO BEDTIME [facility] Last Admin: 01/23/23 20:35 Dose: 80 mg Clonazepam (Clonazepam 1 Mg Tablet) 1 mg PO TID [facility] Last Admin: 01/24/23 08:41 Dose: 1 mg Clonidine HCl (Clonidine Hcl 0.1 Mg Tablet) 0.1 mg PO TID [facility]; Protocol Last Admin: 01/24/23 08:41 Dose: 0.1 mg Ferrous Sulfate (Ferrous Sulfate 300 Mg/5 Ml Liquid) 300 mg PO Q48H [facility] Last Admin: 01/23/23 16:24 Dose: 300 mg Gabapentin (Gabapentin 400 Mg Capsule) 800 mg PO TID [facility] Last Admin: 01/24/23 08:41 Dose: 800 mg Hydroxyzine HCl (Hydroxyzine Hcl 25 Mg Tablet) 25 mg PO Q6H PRN PRN Reason: Anxiety Last Admin: 01/24/23 01:10 Dose: 25 mg Lidocaine (Lidocaine 4 % Patch Adh..Patch) 1 patch TRANSDERMA DAILY [facility]; Protocol Last Admin: 01/24/23 09:17 Dose: 1 patch Lisinopril (Lisinopril 10 Mg Tablet) 10 mg PO DAILY [facility]; Protocol Last Admin: 01/24/23 08:41 Dose: 10 mg Loperamide HCl (Loperamide Hcl 2 Mg Capsule) 2 mg PO Q4H PRN PRN Reason: Diarrhea Last Admin: 01/18/23 15:15 Dose: 2 mg Magnesium Hydroxide (Milk Of Magnesia 30 Ml Oral.Susp) 30 ml PO DAILY PRN PRN Reason: Constipation Nicotine Polacrilex (Nicotine Polacrilex 2 Mg Gum) 4 mg BUCCAL Q2H PRN PRN Reason: Nicotine Cravings Olanzapine (Olanzapine 10 Mg Tablet) 10 mg PO BID PRN PRN Reason: Agitation Last Admin: 01/22/23 11:07 Dose: 10 mg Olanzapine (Olanzapine 10 Mg Tablet) 20 mg PO BEDTIME [facility] Last Admin: 01/23/23 20:35 Dose: 20 mg Omeprazole (Omeprazole 20 Mg Capsule.Dr) 20 mg PO DAILY@0630 [facility] Last Admin: 01/24/23 08:48 Dose: Not Given Propranolol HCl (Propranolol Hcl 20 Mg Tablet) 20 mg PO TID [facility]; Protocol Last Admin: 01/24/23 08:42 Dose: 20 mg Tramadol HCl (Tramadol Hcl 50 Mg Tablet) 50 mg PO Q6H PRN PRN Reason: Pain, Severe (Pain Scale 7-10) Last Admin: 01/24/23 09:14 Dose: 50 mg Trazodone HCl (Trazodone Hcl 50 Mg Tablet) 50 mg PO BEDTIME PRN PRN Reason: Insomnia Last Admin: 01/22/23 21:10 Dose: 50 mg Allergies Allergies Allergy/AdvReac Type Severity Reaction Status Date / Time No Known Allergies Allergy Verified 01/12/23 10:41 Assessment & Plan Assessment & Plan (1) Bipolar affect, depressed: Status: Acute Code(s): F31.30 - Bipolar disorder, current episode depressed, mild or moderate severity, unspecified Plan Pt is a 62-year-old male with a PMH significant for?CAD, HLD, anxiety, hx of [place] three years ago, hx of CVA three years ago, hx of stomach ulcer, and bipolar disorder who is admitted to [facility] for increasing anxiety and depression and medication noncompliance. Medical consult for admission H&P. Patient states that he has no acute medical complaints at this Mood disorder Plan as per Psychiatry Elevated creatinine Patient's creatinine 1.54, slightly above creatinine of 1.37 from labs at [facility] on 01/11/2023 Baseline on known Patient likely mildly dehydrated from decreased p.o. intake Encourage p.o. intake of fluids CAD Continue statin History of CVA Continue statin, Eliquis GERD Continue pantoprazole HTN Continue lisinopril Thank you for allowing us to participate in the care of this patient. Signing off at this time. Please let us know if there are any acute complaints or questions. Plan 01/17 d/c olanzapine as it may be worsening akathisia. increase propanolol 20mg po TID continue clonazepam. On January 18, since the patient was unable to sleep we will restart Zyprexa at a lower dose 10 mg p.o. q.h.s.. Later on, on January 19 we increase it up to 50 mg since he was not sleeping still with racing thoughts. Finally in January 23 we increase Zyprexa up to 20 mg p.o. q.h.s. to target rizwana and insomnia. Klonopin increased up to 1 mg po tid on January 23. On January 24 we added tramadol 50 mg p.r.n. pain to target pain of old fractures in his chest. There is evidence some improvement of his mood. Reason for continued inpatient stay Substantial Risk for: inability to function, rapid decompensation and med/psych decompensation Time Spent With Patient Time: Total time managing care of this patient today __20__ minutes.
[2023-01-24 14:39] VITALS: BP 142/63; PULSE 67
[2023-01-24 18:00] VITALS: BP 121/69; PULSE 51; RESP 18; TEMP 36.2; O2SAT 98
[2023-01-24] MEDS: OLANZapine 10 MG TABLET 20 MG PO (19:43)
[2023-01-24] MEDS: Atorvastatin Calcium 80 MG TABLET PO (19:43)
[2023-01-25 09:03] VITALS: BP 130/70; PULSE 76; RESP 18; TEMP 36.4; O2SAT 100
[2023-01-25] MEDS: Gabapentin 400 MG CAPSULE 800 MG PO ×3 (09:04→20:17)
[2023-01-25] MEDS: lisinopriL 10 MG TABLET PO (09:05)
[2023-01-25] MEDS: Apixaban 5 MG TABLET PO ×2 (09:05→17:15)
[2023-01-25] MEDS: Omeprazole 20 MG CAPSULE.DR PO (09:05)
[2023-01-25] MEDS: clonazePAM 1 MG TABLET PO ×3 (09:05→20:17)
[2023-01-25] MEDS: cloNIDine HCL 0.1 MG TABLET PO ×3 (09:05→20:17)
[2023-01-25] MEDS: Lidocaine 4 % Patch ADH..PATCH 1 PATCH TRANSDERMA (09:05)
[2023-01-25] MEDS: Propranolol HCL 20 MG TABLET PO ×3 (09:05→20:17)
[2023-01-25] MEDS: Acetaminophen 325 MG TABLET 650 MG PO ×2 (09:35→20:17)
[2023-01-25] MEDS: traMADoL HCL 50 MG TABLET PO ×2 (10:01→18:26)
--- NOTE | 2023-01-25 10:27 | HO.PSYCHPN ---
Subjective Subjective Date of Service: 01/25/23 Reason For Visit: F32.9, F31.9 Subjective Notes: Conditional Voluntary Interim History: Nursing staff reported the patient had been medication compliant he looks less anxious and he took tramadol for pain. He has been visible in the unit denies suicidal or homicidal ideation. He is sleeping much better since Zyprexa was increased. The medical social worker reported that we could not contact his yet and we are trying to start working on discharge planning. On interview the patient reports improvement of anxiety with increase of Klonopin. Still with some pain with tramadol. Mental Status Exam Mental Status Exam Patient Appearance: Well Grooomed and Appropriate Patient Orientation: Person and Situation Level of Consciousness: Awake and Appropriate Patient Behavior: Guarded and Passive Mood Description: Withdrawn Affect Description: Constricted Patient Cognition Impaired: Yes Ability to Follow Directions: Good Speech Pattern: Clear Hallucinations: None Delusions: Not Present Thought Process: Distracted and Slowed Thinking Thought Content: positive for [place], positive for Poverty of Content and positive for Thought Blocking Judgement: Fair Diagnostics Vital Signs (24Hr): Vital Signs - 24 hr 01/24/23 14:39 01/24/23 18:00 01/25/23 09:03 Temperature 97.2 F 97.6 F Pulse Rate 67 51 76 Respiratory Rate 18 18 Blood Pressure 142/63 H 121/69 130/70 Pulse Oximetry 98 100 Oxygen Delivery Method Room Air Room Air BMI result Body Mass Index 27.1 Labs 01/17/23 12:23 01/12/23 07:58 Imaging Radiology Impressions: ITS Impressions Ribs X-Ray 01/23/23 15:09 IMPRESSION: No evidence for acute disease in the chest. Old or healing left posterior sixth through ninth rib fractures. Question more recent or acute left anterior eighth rib fracture and left renal stone. Medications Medications Current Medications Acetaminophen (Acetaminophen 325 Mg Tablet) 650 mg PO Q6H PRN PRN Reason: Headache/Pain Mild Scale (1-3) Last Admin: 01/25/23 09:35 Dose: 650 mg Al Hydroxide/Mg Hydroxide (Magnesium Hydrox/Alum Hydrox 30 Ml Oral.Susp) 30 ml PO Q6H PRN PRN Reason: Heartburn/Nausea Apixaban (Apixaban 5 Mg Tablet) 5 mg PO BID@0900,1700 [facility] Last Admin: 01/25/23 09:05 Dose: 5 mg Atorvastatin Calcium (Atorvastatin Calcium 80 Mg Tablet) 80 mg PO BEDTIME PENDING SALE TO [facility] Last Admin: 01/24/23 19:43 Dose: 80 mg Clonazepam (Clonazepam 1 Mg Tablet) 1 mg PO TID [facility]END[facility] TO [facility] Last Admin: 01/25/23 09:05 Dose: 1 mg Clonidine HCl (Clonidine Hcl 0.1 Mg Tablet) 0.1 mg PO TID PENDING SALE TO [facility]; Protocol Last Admin: 01/25/23 09:05 Dose: 0.1 mg Ferrous Sulfate (Ferrous Sulfate 300 Mg/5 Ml Liquid) 300 mg PO Q48H [facility] Last Admin: 01/23/23 16:24 Dose: 300 mg Gabapentin (Gabapentin 400 Mg Capsule) 800 mg PO TID [facility]END[facility] TO [facility] Last Admin: 01/25/23 09:04 Dose: 800 mg Hydroxyzine HCl (Hydroxyzine Hcl 25 Mg Tablet) 25 mg PO Q6H PRN PRN Reason: Anxiety Last Admin: 01/24/23 01:10 Dose: 25 mg Lidocaine (Lidocaine 4 % Patch Adh..Patch) 1 patch TRANSDERMA DAILY [facility] TO [facility]; Protocol Last Admin: 01/25/23 09:05 Dose: 1 patch Lisinopril (Lisinopril 10 Mg Tablet) 10 mg PO DAILY [facility]; Protocol Last Admin: 01/25/23 09:05 Dose: 10 mg Loperamide HCl (Loperamide Hcl 2 Mg Capsule) 2 mg PO Q4H PRN PRN Reason: Diarrhea Last Admin: 01/18/23 15:15 Dose: 2 mg Magnesium Hydroxide (Milk Of Magnesia 30 Ml Oral.Susp) 30 ml PO DAILY PRN PRN Reason: Constipation Nicotine Polacrilex (Nicotine Polacrilex 2 Mg Gum) 4 mg BUCCAL Q2H PRN PRN Reason: Nicotine Cravings Olanzapine (Olanzapine 10 Mg Tablet) 10 mg PO BID PRN PRN Reason: Agitation Last Admin: 01/22/23 11:07 Dose: 10 mg Olanzapine (Olanzapine 10 Mg Tablet) 20 mg PO BEDTIME [facility] Last Admin: 01/24/23 19:43 Dose: 20 mg Omeprazole (Omeprazole 20 Mg Capsule.Dr) 20 mg PO DAILY@0630 [facility] Last Admin: 01/25/23 09:05 Dose: 20 mg Propranolol HCl (Propranolol Hcl 20 Mg Tablet) 20 mg PO TID [facility]; Protocol Last Admin: 01/25/23 09:05 Dose: 20 mg Tramadol HCl (Tramadol Hcl 50 Mg Tablet) 50 mg PO Q6H PRN PRN Reason: Pain, Severe (Pain Scale 7-10) Last Admin: 01/25/23 10:01 Dose: 50 mg Trazodone HCl (Trazodone Hcl 50 Mg Tablet) 50 mg PO BEDTIME PRN PRN Reason: Insomnia Last Admin: 01/22/23 21:10 Dose: 50 mg Allergies Allergies Allergy/AdvReac Type Severity Reaction Status Date / Time No Known Allergies Allergy Verified 01/12/23 10:41 Assessment & Plan Assessment & Plan (1) Bipolar affect, depressed: Status: Acute Code(s): F31.30 - Bipolar disorder, current episode depressed, mild or moderate severity, unspecified Plan Pt is a 62-year-old male with a PMH significant for?CAD, HLD, anxiety, hx of [place] three years ago, hx of CVA three years ago, hx of stomach ulcer, and bipolar disorder who is admitted to [facility] for increasing anxiety and depression and medication noncompliance. Medical consult for admission H&P. Patient states that he has no acute medical complaints at this Mood disorder Plan as per Psychiatry Elevated creatinine Patient's creatinine 1.54, slightly above creatinine of 1.37 from labs at [facility] on 01/11/2023 Baseline on known Patient likely mildly dehydrated from decreased p.o. intake Encourage p.o. intake of fluids CAD Continue statin History of CVA Continue statin, Eliquis GERD Continue pantoprazole HTN Continue lisinopril Thank you for allowing us to participate in the care of this patient. Signing off at this time. Please let us know if there are any acute complaints or questions. Plan 01/17 d/c olanzapine as it may be worsening akathisia. increase propanolol 20mg po TID continue clonazepam. On January 18, since the patient was unable to sleep we will restart Zyprexa at a lower dose 10 mg p.o. q.h.s.. Later on, on January 19 we increase it up to 50 mg since he was not sleeping still with racing thoughts. Finally in January 23 we increase Zyprexa up to 20 mg p.o. q.h.s. to target rizwana and insomnia. Klonopin increased up to 1 mg po tid on January 23. On January 24 we added tramadol 50 mg p.r.n. pain to target pain of old fractures in his chest. There is evidence some improvement of his mood. Reason for continued inpatient stay Substantial Risk for: inability to function, rapid decompensation and med/psych decompensation Time Spent With Patient Time: Total time managing care of this patient today __20__ minutes.
[2023-01-25 18:00] VITALS: BP 124/57; PULSE 62; RESP 18; TEMP 36.8; O2SAT 96
[2023-01-25] MEDS: OLANZapine 10 MG TABLET 20 MG PO (20:17)
[2023-01-25] MEDS: Atorvastatin Calcium 80 MG TABLET PO (20:18)
[2023-01-26 07:00] VITALS: BMI 28.0
[2023-01-26 08:00] VITALS: BP 126/78; PULSE 68; RESP 18; TEMP 36.8; O2SAT 98
[2023-01-26] MEDS: Lidocaine 4 % Patch ADH..PATCH 1 PATCH TRANSDERMA (09:15)
[2023-01-26] MEDS: cloNIDine HCL 0.1 MG TABLET PO ×3 (09:17→19:58)
[2023-01-26] MEDS: clonazePAM 1 MG TABLET PO ×3 (09:17→19:58)
[2023-01-26] MEDS: Omeprazole 20 MG CAPSULE.DR PO (09:17)
[2023-01-26] MEDS: Gabapentin 400 MG CAPSULE 800 MG PO ×3 (09:17→19:58)
[2023-01-26] MEDS: Propranolol HCL 20 MG TABLET PO ×3 (09:17→19:58)
[2023-01-26] MEDS: lisinopriL 10 MG TABLET PO (09:17)
[2023-01-26] MEDS: Apixaban 5 MG TABLET PO ×2 (09:17→16:19)
[2023-01-26] MEDS: traMADoL HCL 50 MG TABLET PO ×2 (10:04→17:08)
--- NOTE | 2023-01-26 10:50 | HO.PSYCHPN ---
Subjective Subjective Date of Service: 01/26/23 Reason For Visit: F32.9, F31.9 Subjective Notes: Conditional Voluntary Interim History: The nursing staff reported the patient has been anxious, he complained of pain in his chest that shown old fractures. He slept well and his mood is less anxious less racing thoughts. The professor of social work reported that he will be discharged back home with several ancillary services such as VNA, lockbox follow-up with psychiatrist aimee. On interview the patient denies new symptoms, showing some drug-seeking behavior. Mental Status Exam Mental Status Exam Patient Appearance: Well Grooomed and Appropriate Patient Orientation: Person and Situation Level of Consciousness: Awake and Appropriate Patient Behavior: Appropriate and Cooperative Mood Description: Calm Affect Description: Constricted Patient Cognition Impaired: Yes Ability to Follow Directions: Good Speech Pattern: Clear Hallucinations: None Delusions: Not Present Thought Process: Distracted and Linear Thought Content: positive for [place] and positive for Linear Judgement: Fair Diagnostics Vital Signs (24Hr): Vital Signs - 24 hr 01/25/23 18:00 01/26/23 08:00 Temperature 98.2 F 98.2 F Pulse Rate 62 68 Respiratory Rate 18 18 Blood Pressure 124/57 L 126/78 Pulse Oximetry 96 98 Oxygen Delivery Method Room Air Room Air BMI result Body Mass Index 27.1 Labs 01/17/23 12:23 01/12/23 07:58 Imaging Radiology Impressions: ITS Impressions Ribs X-Ray 01/23/23 15:09 IMPRESSION: No evidence for acute disease in the chest. Old or healing left posterior sixth through ninth rib fractures. Question more recent or acute left anterior eighth rib fracture and left renal stone. Medications Medications Current Medications Acetaminophen (Acetaminophen 325 Mg Tablet) 650 mg PO Q6H PRN PRN Reason: Headache/Pain Mild Scale (1-3) Last Admin: 01/25/23 20:17 Dose: 650 mg Al Hydroxide/Mg Hydroxide (Magnesium Hydrox/Alum Hydrox 30 Ml Oral.Susp) 30 ml PO Q6H PRN PRN Reason: Heartburn/Nausea Apixaban (Apixaban 5 Mg Tablet) 5 mg PO BID@0900,1700 [facility] Last Admin: 01/26/23 09:17 Dose: 5 mg Atorvastatin Calcium (Atorvastatin Calcium 80 Mg Tablet) 80 mg PO BEDTIME [facility] Last Admin: 01/25/23 20:18 Dose: 80 mg Clonazepam (Clonazepam 1 Mg Tablet) 1 mg PO TID [facility] Last Admin: 01/26/23 09:17 Dose: 1 mg Clonidine HCl (Clonidine Hcl 0.1 Mg Tablet) 0.1 mg PO TID [facility]; Protocol Last Admin: 01/26/23 09:17 Dose: 0.1 mg Ferrous Sulfate (Ferrous Sulfate 300 Mg/5 Ml Liquid) 300 mg PO Q48H [facility] Last Admin: 01/25/23 17:16 Dose: Not Given Gabapentin (Gabapentin 400 Mg Capsule) 800 mg PO TID [facility] Last Admin: 01/26/23 09:17 Dose: 800 mg Hydroxyzine HCl (Hydroxyzine Hcl 25 Mg Tablet) 25 mg PO Q6H PRN PRN Reason: Anxiety Last Admin: 01/24/23 01:10 Dose: 25 mg Lidocaine (Lidocaine 4 % Patch Adh..Patch) 1 patch TRANSDERMA DAILY [facility]; Protocol Last Admin: 01/26/23 09:15 Dose: 1 patch Lisinopril (Lisinopril 10 Mg Tablet) 10 mg PO DAILY [facility]; Protocol Last Admin: 01/26/23 09:17 Dose: 10 mg Loperamide HCl (Loperamide Hcl 2 Mg Capsule) 2 mg PO Q4H PRN PRN Reason: Diarrhea Last Admin: 01/18/23 15:15 Dose: 2 mg Magnesium Hydroxide (Milk Of Magnesia 30 Ml Oral.Susp) 30 ml PO DAILY PRN PRN Reason: Constipation Nicotine Polacrilex (Nicotine Polacrilex 2 Mg Gum) 4 mg BUCCAL Q2H PRN PRN Reason: Nicotine Cravings Olanzapine (Olanzapine 10 Mg Tablet) 10 mg PO BID PRN PRN Reason: Agitation Last Admin: 01/22/23 11:07 Dose: 10 mg Olanzapine (Olanzapine 10 Mg Tablet) 20 mg PO BEDTIME [facility] Last Admin: 01/25/23 20:17 Dose: 20 mg Omeprazole (Omeprazole 20 Mg Capsule.Dr) 20 mg PO DAILY@0630 [facility] Last Admin: 01/26/23 09:17 Dose: 20 mg Propranolol HCl (Propranolol Hcl 20 Mg Tablet) 20 mg PO TID [facility]; Protocol Last Admin: 01/26/23 09:17 Dose: 20 mg Tramadol HCl (Tramadol Hcl 50 Mg Tablet) 50 mg PO Q6H PRN PRN Reason: Pain, Severe (Pain Scale 7-10) Last Admin: 01/26/23 10:04 Dose: 50 mg Trazodone HCl (Trazodone Hcl 50 Mg Tablet) 50 mg PO BEDTIME PRN PRN Reason: Insomnia Last Admin: 01/22/23 21:10 Dose: 50 mg Allergies Allergies Allergy/AdvReac Type Severity Reaction Status Date / Time No Known Allergies Allergy Verified 01/12/23 10:41 Assessment & Plan Assessment & Plan (1) Bipolar affect, depressed: Status: Acute Code(s): F31.30 - Bipolar disorder, current episode depressed, mild or moderate severity, unspecified Plan Pt is a 62-year-old male with a PMH significant for?CAD, HLD, anxiety, hx of [place] three years ago, hx of CVA three years ago, hx of stomach ulcer, and bipolar disorder who is admitted to [facility] for increasing anxiety and depression and medication noncompliance. Medical consult for admission H&P. Patient states that he has no acute medical complaints at this Mood disorder Plan as per Psychiatry Elevated creatinine Patient's creatinine 1.54, slightly above creatinine of 1.37 from labs at [facility] on 01/11/2023 Baseline on known Patient likely mildly dehydrated from decreased p.o. intake Encourage p.o. intake of fluids CAD Continue statin History of CVA Continue statin, Eliquis GERD Continue pantoprazole HTN Continue lisinopril Thank you for allowing us to participate in the care of this patient. Signing off at this time. Please let us know if there are any acute complaints or questions. Plan / d/c olanzapine as it may be worsening akathisia. increase propanolol 20mg po TID continue clonazepam. On January 18, since the patient was unable to sleep we will restart Zyprexa at a lower dose 10 mg p.o. q.h.s.. Later on, on January 19 we increase it up to 50 mg since he was not sleeping still with racing thoughts. Finally in January 23 we increase Zyprexa up to 20 mg p.o. q.h.s. to target rizwana and insomnia. Klonopin increased up to 1 mg po tid on January 23. On January 24 we added tramadol 50 mg p.r.n. pain to target pain of old fractures in his chest. There is evidence some improvement of his mood. Discharge tomorrow. Reason for continued inpatient stay Substantial Risk for: inability to function, rapid decompensation and med/psych decompensation Time Spent With Patient Time: Total time managing care of this patient today __20__ minutes.
[2023-01-26] MEDS: OLANZapine 10 MG TABLET PO (17:09)
[2023-01-26 18:00] VITALS: BP 131/63; PULSE 54; RESP 18; TEMP 36.9; O2SAT 98
[2023-01-26] MEDS: traZODone HCL 50 MG TABLET PO (19:58)
[2023-01-26] MEDS: Atorvastatin Calcium 80 MG TABLET PO (19:59)
[2023-01-26] MEDS: OLANZapine 10 MG TABLET 20 MG PO (19:59)
[2023-01-26] MEDS: Acetaminophen 325 MG TABLET 650 MG PO (20:04)
[2023-01-27 07:55] VITALS: BP 121/62; PULSE 64; RESP 18; TEMP 37; O2SAT 98
[2023-01-27] MEDS: Omeprazole 20 MG CAPSULE.DR PO (08:11)
[2023-01-27] MEDS: lisinopriL 10 MG TABLET PO (08:11)
[2023-01-27] MEDS: Propranolol HCL 20 MG TABLET PO (08:11)
[2023-01-27] MEDS: Gabapentin 400 MG CAPSULE 800 MG PO (08:11)
[2023-01-27] MEDS: Apixaban 5 MG TABLET PO (08:11)
[2023-01-27] MEDS: cloNIDine HCL 0.1 MG TABLET PO (08:12)
[2023-01-27] MEDS: clonazePAM 1 MG TABLET PO (08:12)
--- NOTE | 2023-01-27 08:25 | PM.PSYDC ---
DS: Providers Provider Date of Service: 01/27/23 Date of admission: 01/11/23 20:09 Date of discharge: 01/27/23 Primary care physician: Unknown Physician Consults: 01/11/23 20:32 Consult to Hospitalist Routine Comment: Consulting Provider: Hospitalist Reason For Exam: OSH admission DS: Diagnosis Discharge Diagnosis (1) Bipolar affect, depressed: Status: Acute DS: Medications Discharge Medications Home Medications: Home Medications Medication Instructions Recorded Confirmed apixaban 5 mg tablet (Eliquis) 5 mg PO BID@0900,1700 01/12/23 01/12/23 atorvastatin 80 mg tablet 80 mg PO BEDTIME 01/12/23 01/12/23 benztropine 1 mg tablet 1 mg PO BID 01/12/23 01/12/23 clonidine HCl 0.1 mg tablet 0.1 mg PO TID 01/12/23 01/12/23 gabapentin 400 mg capsule 400 mg PO TID 01/12/23 01/12/23 hydroxyzine HCl 25 mg tablet 25 mg PO BID PRN Anxiety 01/12/23 01/12/23 lisinopril 10 mg tablet 10 mg PO DAILY 01/12/23 01/12/23 lorazepam 0.5 mg tablet 0.5 mg PO TID 01/12/23 01/12/23 olanzapine 20 mg tablet 20 mg PO BEDTIME 01/12/23 01/12/23 pantoprazole 40 mg tablet,delayed 40 mg PO DAILY 01/12/23 01/12/23 release propranolol 20 mg tablet 20 mg PO BID 01/12/23 01/12/23 venlafaxine 150 mg 150 mg PO QAM 01/12/23 01/12/23 capsule,extended release 24 hr Mental Status Exam Mental Status Exam Patient Appearance: Well Grooomed Patient Orientation: Person and Situation Level of Consciousness: Awake and Appropriate Patient Behavior: Guarded and Passive Mood Description: Calm Affect Description: Constricted Patient Cognition Impaired: Yes Ability to Follow Directions: Good Speech Pattern: Clear Hallucinations: None Delusions: Not Present Thought Process: Linear Thought Content: positive for Circumstantial Judgement: Fair Data Imaging Diagnostic Imaging Impressions Ribs X-Ray 01/23/23 15:09 IMPRESSION: No evidence for acute disease in the chest. Old or healing left posterior sixth through ninth rib fractures. Question more recent or acute left anterior eighth rib fracture and left renal stone. DS: Summary Hospital Course Hospital Course: The patient was initially admitted for exacerbation of irritability, increased energy and mood lability. The patient carries a diagnosis of schizoaffective disorder bipolar type and he was transferred from another facility for continuation of care. Please see the HPI of the admission note for further details. On admission, the patient was very anxious and restless. He reported that he did not have any psychiatric conditions but we gather collateral information. Apparently the patient lives at home and his reported that he was always restless not sleeping at night. We discussed risks, benefits, side-effects and alternatives and the patient agreed to try Zyprexa initially, he had more restlessness but later on he improved. Zyprexa was titrated up to 20 mg p.o. q.h.s. with for improvement of his irritability, mood lability and insomnia. Even though the patient improve with Zyprexa he was still restless. He was initially on Ativan p.r.n. so we changed to Klonopin titrated up to 1 mg p.o. b.i.d.. Also we increased his gabapentin to target anxiety and impulsivity. The patient showed drug-seeking behavior in the unit and apparently he has a past history of abuse of medications. He also complained of chest pain and he was clear that the patient had an old fracture on his ribs that improved with tramadol p.r.n.. The patient's mood improved, he was more calm and cooperative, easily redirectable and there were no safety concerns. We discussed discharge planning and several services in the community where arrange such as VNA, referral to daycare program and others. Since there were no safety concerns discharge planning was discussed. Time spent discussing smoking cessation with patient: 3 to 10 minutes Status at Discharge Cognitive/behavioral status at discharge: Impaired at baseline Functional status at discharge: independent ambulation Overall status at discharge: patient is back to baseline Time Spent with Patient Time attestation: Total time managing care of this patient today _30___ minutes. Discharge Plan Discharge Anticipated Discharge Date/Time: 01/27/23 10:00 Patient Disposition: Home, Self-Care Discharge Diagnosis: Bipolar disorder Referrals: Dr Hemal Rios [facility] [Other] - 02/10/23 1:00 pm (Your next primary care appointment is scheduled for 02/10/23 at 1PM.) [facility] [Other] - 02/07/23 1:00 pm (Your next appointment with Dr Josey Espinoza is scheduled for 02/07/23 at 1PM in office. ) [facility] [Other] - 01/28/23 (Your twice a day visits from home care providers to resume at time of discharge. Your VNA will contact you after discharge and will do a home visit for restart of services on Monday01/28/23 and will come 2 times a day. ) Maria C Samuel, [facility] PCP's office [Other] - 3-5 Days (Maria C will contact you following discharge and follow up with you on your aftercare appointments and any additional needed resources. ) [facility] [Other] - 01/31/23 1:00 pm (You are scheduled for a tour and assessment of the day program on Monday01/31/23 at 1pm. Next step after assessment is paperwork is completed and sent to your senior instrumentation engineer, and then you are trialed at day program and then fully enrolled after trial period. If you have specific questions related to this process please contact [facility] directly at [phone]. ) [facility] [Other] - 3-5 Days (Your [facility] acute care nurse to follow up following discharge within 48 hours.) Discharge Medications: New ferrous sulfate 300 mg (60 mg iron)/5 mL Liquid 300 mg PO Q48H Qty: 120 0RF acetaminophen 325 mg Tablet 650 mg PO Q6H PRN (Reason: Headache/Pain Mild Scale (1-3)) Qty: 30 0RF gabapentin 400 mg Capsule 800 mg PO TID 30 Days Qty: 180 0RF propranolol 20 mg Tablet 20 mg PO TID 30 Days Qty: 90 0RF Protocol: Hold for SBP/HR < HOLD for SBP < : 90 HOLD for HR < : 60 lidocaine [Lidocaine Pain Relief] 4 % Adhesive Patch,Medicated 1 patch transdermal DAILY Qty: 30 0RF Protocol: Apply to: Apply to: left ribs trazodone 50 mg Tablet 50 mg PO BEDTIME PRN (Reason: Insomnia) 30 Days Qty: 30 0RF clonazepam 1 mg Tablet 1 mg PO TID 30 Days Qty: 90 0RF olanzapine 10 mg Tablet 20 mg PO BEDTIME 30 Days Qty: 60 0RF tramadol 50 mg Tablet 50 mg PO Q6H PRN (Reason: Pain, Severe (Pain Scale 7-10)) 30 Days Qty: 60 0RF hydroxyzine HCl 25 mg Tablet 25 mg PO Q6H PRN (Reason: Anxiety) 30 Days Qty: 60 0RF Continued atorvastatin 80 mg Tablet 80 mg PO BEDTIME 30 Days Qty: 30 0RF clonidine HCl 0.1 mg Tablet 0.1 mg PO TID 30 Days Qty: 90 0RF pantoprazole 40 mg Tablet,Delayed Release (Dr/Ec) 40 mg PO DAILY 30 Days Qty: 30 0RF lisinopril 10 mg Tablet 10 mg PO DAILY 30 Days Qty: 30 0RF Eliquis 5 mg Tablet 5 mg PO BID@0900,1700 Qty: 60 0RF Discontinued gabapentin 400 mg Capsule 400 mg PO TID venlafaxine 150 mg Capsule,Extended Release 24hr 150 mg PO QAM lorazepam 0.5 mg Tablet 0.5 mg PO TID benztropine 1 mg Tablet 1 mg PO BID hydroxyzine HCl 25 mg Tablet 25 mg PO BID PRN (Reason: Anxiety) propranolol 20 mg Tablet 20 mg PO BID olanzapine 20 mg Tablet 20 mg PO BEDTIME Discharge Orders: Discharge Order (Routine); Ordered 01/27/23 Ordered By: Mu Warner Diet: Advance to usual diet Activity on Discharge: As tolerated Stand Alone Forms: Patient Portal Discharge page Care Plan Goals: Care plan goals achieved in this admission Health Concerns: Continue treatment with by primary care physician Plan of Treatment: Continue medication management and psychotherapy Assessment: Elderly male with a history of bipolar disorder who was admitted with exacerbation of irritability, increased energy anxiety and restlessness. Medication changes were made with for improvement of the symptoms since there were no safety concerns he was discharged to the community.
[2023-01-27] MEDS: traMADoL HCL 50 MG TABLET PO (09:52)
== END 2023-01-27 10:25 | disposition home or self-care (01) | DRG 885 ==
PROVIDERS: Psychiatry & Neurology Psychiatry; Social Worker; Admitting Provider Psychiatry & Neurology Psychiatry; Visit Provider Psychiatry & Neurology Psychiatry
DX: F31.30 Bipolar disorder, current episode depressed, mild or moderate severity, unspecified (principal); I25.10 Atherosclerotic heart disease of native coronary artery without angina pectoris; I25.2 Old myocardial infarction; K21.9 Gastro-esophageal reflux disease without esophagitis; E86.0 Dehydration; F41.9 Anxiety disorder, unspecified; I10 Essential (primary) hypertension; S22.32XS Fracture of one rib, left side, sequela; X58.XXXS Exposure to other specified factors, sequela; E78.5 Hyperlipidemia, unspecified; Z91.148 Patient's other noncompliance with medication regimen for other reason; Z86.73 Personal history of transient ischemic attack (TIA), and cerebral infarction without residual deficits; Z79.01 Long term (current) use of anticoagulants; Z79.899 Other long term (current) drug therapy
CPT/HCPCS: 36415; 71101; 80053; 80061; 82607; 82746; 83036; 83540; 83735; 84439; 84443; 85025